=== PATIENT | female | born 1980 | race African-American/Black ===

== ENCOUNTER 2025-03-29 13:08 | Outpatient (OUT) | payer MEDICAID, SELFPAY ==
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
--- OUTSIDE RECORDS SUMMARY | 2025-03-29 13:14 | XMS_ITS | Clinical Summary ---
Author Organization [facility] Address [address] [place] [address] Care Team Providers Care Market Research Specialist Name Role Phone Unavailable Primary Care Provider Unavailabl e Source Comments PLEASE NOTE, if this patient is a minor, it may be UNLAWFUL to discuss sensitive information that is contained in these records (such as FAMILY PLANNING, MENTAL HEALTH or SUBSTANCE ABUSE) with the minor patient's parent or other person without the patient's specific authorization.[facility] Allergies Active Allergy Reactions Criticality Noted Date Comments Bee Pollen Other (See Comments) 02/03/2006 SINUS CONGESTION,WATERY EYES,SNEEZING,ITCHI NG EYES,SCRATCHY THROAT, PUFFY EYES Hydrocodone Itching 05/28/2017 Hydrocodone-Acetaminoph en Itching 12/10/2014 Has taken oxycodone/acetamino phen in past with no rxn Morphine Hives,Itching 12/10/2014 Takes Benadryl with it Nsaids (Non-Steroidal Anti-Inflammatory Drug) Unknown 06/30/2015 Gastric bypass Gastric Bypass Surgery - 2009 Unsure what type of reaction the patient had but she states she had a reaction to it years ago Unsure what type of reaction the patient had but she states she had a reaction to it years ago Medications enoxaparin (LOVENOX) 100 mg/mL syringe Inject 100 mg into the skin. 5 Active folic acid (FOLVITE) 1 mg tablet Take 1 mg by mouth daily. 5 Active gabapentin (NEURONTIN) 300 mg capsule Take 600 mg by mouth 3 (three) times a day. 5 Active hydrOXYzine HCL (ATARAX) 25 mg tablet Take 25 mg by mouth every 6 (six) hours as needed. Active levothyroxine 25 mcg tablet Take 25 mcg by mouth daily. Active lidocaine (LMX) 4 % cream Apply topically 4 (four) times a day. Active melatonin 3 mg tablet Take 6 mg by mouth. Active multivitamin with minerals tab Take 1 Tablet by mouth daily. Active alum-mag hydroxide-simet h (MYLANTA) 200-200-20 mg/5 mL suspension Take 30 mL by mouth. Active polyethylene glycol, PEG, 3350 (GLYCOLAX) 17 gram/dose powder Take 17 g by mouth twice a day. Active potassium chloride 20 mEq ER tablet TAKE 2 TABLETS (40 MEQ) BY MOUTH ONCE DAILY FOR 5 DAYS. DO NOT CRUSH OR CHEW. Active QUEtiapine (SEROQUEL) 25 mg tablet Take 50 mg by mouth. Active thiamine (VITAMIN B-1) 100 mg tablet Take 100 mg by mouth daily. Active Active Problems Problem Noted Date Diagnosed Date Severe alcohol use disorder ([facility]) 02/22 Deep vein thrombosis (DVT) o f left lower extremity ([facility]) 01/23/2025 Severe episode of recurrent major depressive disorder ([facility]) 01/22/2025 Generalized anxiety disorder 01/22/2025 PTSD (post-traumatic stress disorder) 01/22/2025 Liver damage 12/02/2024 Neuropathy 03/14/2024 RLS (restless legs syndrome) 03/14/2024 Meralgia paresthetica of both lower extremities 02/17/2024 Inflammatory liver disease 01/14/2024 Hyperlipidemia 12/16/2023 Morbid obesity ([facility]) 12/16/2023 Primary hypertension 12/16/2023 Metabolic syndrome 12/16/2023 Myopia of both eyes with regular astigmatism Hx of bariatric surgery 12/19/2018 Chronic deep vein thrombosis (DVT) of iliac vein of left lower extremity ([facility]) 06/05/2017 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 Anemia 05/28/2017 Hypoglycemia 05/28/2017 Hypothyroidism 03/12/2017 Overview (01/29/2025): Last Assessment & Plan: PLAN: -continue home synthroid Major depression 05/03/2012 Overview (01/29/2025): Last Assessment & Plan: Assessment: Depression PLAN: Hx of depression, not currently taking antidepressant or followed by psych No suicidal ideation Recommend follow up with PCP Attention deficit hyperactivity disorder (ADHD) 05/03/2012 Overview (01/29/2025): Last Assessment & Plan: PLAN: -continue home adderall Encounters Date Type Department Care Team Description 03/21/2025 1:00 PM EDT BH/MH Visits [address] [address] Brunilda Lozano LPCC 03/21/2025 BH/MH Visits [address] [address] Brunilda Lozano [facility]CC 02/28/2025 10:00 AM EDT BH/MH Visits [facility] Case Management [address] [place] [phone] Tyree Tinsley QM-B 02/21/2025 9:30 AM EDT BH/MH Visits [facility] Management [address] [place] [phone] Tyree Tinsley [facility] 01/22/2025 11:30 AM EDT BH/MH Visits [address] [address] Radha Renteria LPC from Last 3 Months Immunizations Immunization Administration Dates Next Due DTP 11/15/1981, 1,01/19/1980,06/21 Flu, Preservative Free 09/18/2021,2020,05/17/2019,04/30 Hep B, Adult/Adol (RIJTODH-N-UVLYI/RECOMBIVAX-ADULT) 11/03/2022,02/08/1996,12/24/1995 INFLUENZA, SEASONAL, INJECTABLE 05/21/2014 INFLUENZA, UNSPECIFIED 06/16/2016,05/24/2015,08/2012 MMR (MMR II/Priorix) 09/03/1980 OPV, Trivalent 11/15/1981, 1,01/19/1980,06/21 PNEUMOCOCCAL POLYSACCHARIDE PPV23 (Pneumovax 23) 09/30/2016 PPD 03/17/2010, 8,02/10/2006,02/03,10/15/1999,10/10/1999 TDAP 11/03/2022,11/30/2021,05/20/2006 Td (adult) unspecified 12/24/1995 Tetanus Toxoid, Absorbed 07/10/2014 Varicella (Varivax), Live Vaccine 02/08/1996,10/1995 Social History Tobacco Use Types Packs/Day Years Used Date Smoking Tobacco: Never Assessed Comments Unknown Sex and Gender Information Value Date Recorded Sex Assigned at Not on file Legal Sex Female 7:10 AM PDT Gender Identity Female 03/21/2025 9:23 AM PDT Sexual Orientation Not on file Plan of Treatment Upcoming Encounters Date Type Department Care Team (Late st Contact Info) Description 04/04/2025 11:00 AM EDT / Visits [facility] [address] [place] [address] Emma Waddell [facility] [address] [place] [address] Health Maintenance Due Date Last Done Comments HPV Screening 1979 Lipid Screening 1979 Pap + HPV 1979 Tobacco Screening 1979 Relationship Safety Screening/Counseling 1994 Cervical Cancer Screening 2000 Pap Smear 2000 Breast Cancer Screening (Mammogram) 2019 CT Colonography 2024 Colonoscopy 2024 Colorectal Cancer Screening 2024 FIT/gFOBT 2024 Fecal DNA 2024 Flexible Sigmoidoscopy 2024 Cck-IIRHB-43 ( season) 2024 Imm-Influenza (#1) 2025 09/18/2021, 1 , 05/17/2019, Additional history exists Depression Monitoring 04/24/2025 01/22/2025 TSH Monitoring 12/01/2025 12/01/2024, 10/21/2017 Diabetes Screening 01/16/2026 01/16/2025, 0 01/16/2025, 01/12/2025, Additional history exists Anxiety Screening 01/22/2026 01/22/2025 Imm-DTaP/Tdap/Td (9 - Td or Tdap) 11/03/2032 11/03/2022, 11/30/2021, 05/20/2006, Additional history exists Imm-Hepatitis B Completed 11/03/2022, 01/21, 12/24/1995 HIV Screening Completed 12/02/2024 Hepatitis C Screening Completed 12/02/2024 Alcohol and Drug Screen Completed 01/22/2025 Cervical Ablation/Cold-Knife Conization Discontinued Cervical Cryotherapy Discontinued Colposcopy Discontinued Endometrial Biopsy Discontinued Excision/Leep Discontinued HPV Genotyping Discontinued Vaginal Pap Discontinued Vulvoscopy Discontinued [facility] Member Subscriber Plan / Payer (Ef fective 2025-Present) Name:Hendrickson Nilton Relation to Subscriber:Self Name:Emeka Nilton Payer ID:[id number] Group ID:Not on file Type:Medicaid Address: [address] [place] [address] [facility]
--- OUTSIDE RECORDS SUMMARY | 2025-03-29 13:14 | XMS_ITS | Encounter Summary ---
Author Organization [facility] Address [address] [place] [address] Phone Care Team Providers Care Municipal Maintenance Worker Name Role Phone Generic Provider, No Assigned Pcp Primary Car e Provider Unavailable Michael Phillips MD, Kylee Unavailable Unavailable Alicia Valenzuela MD Unavailable [phone] Emelina Hendrickson MD, MS Unavailable [phone] Encounter Details Date Type Department Care Team (Late st Contact Info) Description 02/02/2025 Scanned Document [facility] [address] [address] Jessica Serrato MA Social History Tobacco Use Types Packs/Day Years Used Date Smoking Tobacco: Never Smokeless Tobacco: Never Alcohol Use Standard Drinks/Week Comments Not Currently 0 (1 standard drink = 0.6 oz pur e alcohol) B1300 Health Literacy Answer Date Recor ded How often do you need to hav e someone help you when you read instructions, pamphlets, or other written material from your doctor or pharmacy? Never 01/01/2025 [facility] Utilities Answer Date Recorded In the past 12 months has e [employer], gas, oil, or water [employer] threatened to shut off services in your home? No 01/04/2025 Humiliation, Afraid, Rape, and Kick questionnair e Answer Date Recorded Within the last year, have y ou been afraid of your partner or ex-partner? No 01/04/2025 Within the last year, have y ou been humiliated or emotionally abused in other ways by your partner or ex-partner? No Within the last year, have y ou been kicked, hit, slapped, or otherwise physically hurt by your partner or ex-partner? No 01/04/2025 Within the last year, have y ou been raped or forced to have any kind of sexual activity by your partner or ex-partner? No 01/04/2025 Social Connection and Isolation Panel Answer Date Recorded In a typical week, how many times do you talk on the phone with family, friends, or neighbors? More than three times a week 01/01/2025 How often do you get togethe r with friends or relatives? More than three times a week 01/01/2025 How often do you attend chur or jain services? More than 4 times per year 01/01/2025 Active Member of Clubs or Organizations Not on f ile 01/01/2025 How often do you attend meet ings of the clubs or organizations you belong to? More than 4 times per year 01/01/2025 Are you , , di vorced, , never , or living with a partner? 01/01/2025 AUDIT-C Answer Date Recorded Q1: How often do you have a drink containing alcohol? 4 or more times a week 01/03/2025 Q2: How many drinks containi ng alcohol do you have on a typical day when you are drinking? 5 or 6 Q3: How often do you have si x or more drinks on one occasion? Weekly 01/03/2025 Overall Financial Resource Strain (CARDIA) Answe r Date Recorded How hard is it for you to pa y for the very basics like food, housing, medical care, and heating? Somewhat hard 01/04/2025 PHQ-2 Answer Date Recorded Patient Health Questionnaire-2 Score 0 01/03/2025 [facility] [place] of Occupat ional Health - Occupational Stress Questionnaire Answer Date Recorded Do you feel stress - tense, restless, nervous, or anxious, or unable to sleep at night because your mind is troubled all the time - these days? To some extent 01/01/2025 Exercise Vital Sign Answer Date Recorde d On average, how many days pe r week do you engage in moderate to strenuous exercise (like a brisk walk)? 0 days 01/01/2025 On average, how many minutes do you engage in exercise at this level? 0 min 01/01/2025 Hunger Vital Sign Answer Date Recorded Within the past 12 months, y ou worried that your food would run out before you got the money to buy more. Sometimes true Within the past 12 months, t he food you bought just didn't last and you didn't have money to get more. Sometimes true PRAPARE - Transportation Answer Date Re corded In the past 12 months, has l ack of transportation kept you from medical appointments or from getting medications? No 12/21 In the past 12 months, has l ack of transportation kept you from meetings, work, or from getting things needed for daily living? No 01/04/2025 Housing Stability Vital Sign Answer Vladimir e Recorded In the last 12 months, was t here a time when you were not able to pay the mortgage or rent on time? No 02/13/2024 In the last 12 months, how many places have you lived? 1 02/13/2024 In the last 12 months, was t here a time when you did not have a steady place to sleep or slept in a usp (including now)? No 02/13/2024 Housing Stability Vital Sign Answer Vladimir e Recorded In the last 12 months, was t here a time when you were not able to pay the mortgage or rent on time? No 01/04/2025 In the past 12 months, how m any times have you moved where you were living? 0 01/04/2025 At any time in the past 12 m [facility], were you homeless or living in a usp (including now)? No 01/04/2025 Comments Unknown Sex and Gender Information Value Date Recorded Sex Assigned at Not on file Legal Sex Female 8:38 AM EST Gender Identity Not on file Sexual Orientation Not on file COVID-19 Exposure Response Date Recorded In the last 10 days, have yo u been in contact with someone who was confirmed or suspected to have Coronavirus/COVID-19? No / Unsure 01/12/2025 10:28 PM EDT documented as of this encounter Functional Status * Are you deaf or do you have serious difficulty hearing? Answer Date of Assessment Author No 01/04/2025 3:53 PM EDT Timmy Monteiro * Are you blind or do you have serious difficulty seeing, even when wearing glasses? Answer Date of Assessment Author No 01/04/2025 3:53 PM EDT Timmy Monteiro * Do you have serious difficulty walking or climbing stairs? Answer Date of Assessment Author No 01/04/2025 3:53 PM EDT Timmy Monteiro * Do you have serious difficulty dressing or bathing? Answer Date of Assessment Author No 01/04/2025 3:53 PM EDT Timmy Monteiro * Because of a physical, mental, or emotional condition, do you have serious difficulty doing errandsalone such as visiting the doctor? Answer Date of Assessment Author No 01/04/2025 3:53 PM EDT Timmy Monteiro documented as of this encounter Mental Status * Because of a physical, mental, or emotional condition, do you have serious difficulty concentrating, remembering, or making decisions? (5 years old or older) Answer Entry Date Author No 01/04/2025 3:53 PM EDT Timmy Monteiro documented in this encounter Plan of Treatment Upcoming Encounters Date Type Department Care Team (Late st Contact Info) Description 05/08/2025 9:00 AM EDT Telemedicine [facility] [address] [facility] [address] [place] [phone] Rimma Lozada, LETTER SORTING MACHINE OPERATORFITCHBURG [facility] [address] [facility] [place] [address] documented as of this encounter Visit Diagnoses Not on filedocumented in this encounter Additional Health Concerns Assessment Noted Time A fall risk assessment has been complete d for the patient 01/13/2024 2:45 PM EDT documented as of this encounter Care Teams Municipal Maintenance Worker Relationship Specialty Start Date End Date Generic Provider, No [place] [address] PCP - General Card Reader 03/30/24 [place] [address] Consulting Physician Hematology and Oncology 05/09/2402/21/25 [place] [address] [place] [address] Consulting Physician Hematology and Oncology 12/12/24 [place] [address] [address] [facility] [place] [address] Consulting Physician Vascular Medicine 01/23/25 documented as of this encounter
--- OUTSIDE RECORDS SUMMARY | 2025-03-29 13:14 | XMS_ITS | Encounter Summary ---
Author Organization [facility] Address [address] [place] [address] Phone Care Team Providers Care Storage Architect Name Role Phone Generic Provider, No Assigned Pcp MD Primary Car e Provider Unavailable Michael Phillips MD, Kylee Unavailable Unavailable Aranza Hendrickson [facility] Unavailable Unavailab Rimma Mccormick MOTOCROSS RACER-REPAIR CLERK Unavailable [phone] Alicia Valenzuela MD Unavailable [phone] Rachel Fermin [facility] Unavailable Un available Emelina Hendrickson MD, MS Unavailable [phone] Encounter Details Date Type Department Care Team (Late st Contact Info) Description 03/10/2024 Orders Only [facility] [address] [place] [phone] Rimma Lozada, MOTOCROSS RACER-REPAIR CLERK [address] Department [place] [address] Social History Tobacco Use Types Packs/Day Years [...] material from your doctor or pharmacy? Never 03/04/2024 [facility] Utilities Answer Date Recorded In the past 12 months has th e electric, gas, oil, or water company threatened to shut off services in your home? No 03/04/2024 Humiliation, Afraid, Rape, and Kick questionnair e Answer Date Recorded Within the last year, have y ou been afraid of your partner or ex-partner? No 03/04/2024 Within the last year, have y ou been humiliated or emotionally abused in other ways by your partner or ex-partner? No Within the last year, have y ou been kicked, hit, slapped, or otherwise physically hurt by your partner or ex-partner? No 03/04/2024 Within the last year, have y ou been raped or forced to have any kind of sexual activity by your partner or ex-partner? No 03/04/2024 Social Connection and Isolation Panel Answer Date Recorded In a typical week, how many times do you talk on the phone with family, friends, or neighbors? Never 03/04/2024 How often do you get together with friends or re latives? Never 03/04/2024 How often do you attend muslim or denominational serv ices? Never 03/04/2024 Do you belong to any clubs o r organizations such as muslim groups, unions, fraternal or athletic groups, or school groups? No 03/04/2024 How often do you attend meet ings of the clubs or organizations you belong to? Never 03/04/2024 Are you , , di vorced, , never , or living with a partner? 03/04/2024 AUDIT-C Answer Date Recorded Q1: How often do you have a drink containing alc ohol? 2-4 times a month 03/04/2024 Q2: How many drinks containi ng alcohol do you have on a typical day when you are drinking? 1 or 2 03/04/2024 Q3: How often do you have si x or more drinks on one occasion? Never 03/04/2024 Overall Financial Resource Strain (CARDIA) Answe r Date Recorded How hard is it for you to pa y for the very basics like food, housing, medical care, and heating? Not very hard 03/04/2024 PHQ-2 Answer Date Recorded Patient Health Questionnaire-2 Score 0 03/04/2024 [facility] - Occupational Stress Questionnaire Answer Date Recorded Do you feel stress - tense, restless, nervous, or anxious, or unable to sleep at night because your mind is troubled all the time - these days? Not at all 03/04/2024 Exercise Vital Sign Answer Date Recorde d On average, how many days pe r week do you engage in moderate to strenuous exercise (like a brisk walk)? 0 days 03/04/2024 On average, how many minutes do you engage in exercise at this level? 0 min 03/04/2024 Hunger Vital Sign Answer Date Recorded Within the past 12 months, y ou worried that your food would run out before you got the money to buy more. Never true 03/04/20 24 Within the past 12 months, t he food you bought just didn't last and you didn't have money to get more. Never true 03/04/2024 PRAPARE - Transportation Answer Date Re corded In the past 12 months, has l ack of transportation kept you from medical appointments or from getting medications? No 02/20 In the past 12 months, has l ack of transportation kept you from meetings, work, or from getting things needed for daily living? No 03/04/2024 Housing Stability Vital Sign Answer Vladimir e [...] place to sleep or slept in a long-term (including now)? No 02/13/2024 Housing Stability Vital Sign Answer Vladimir e Recorded In the last 12 months, was t here a time when you were not able to pay the mortgage or rent on time? No 03/04/2024 In the past 12 months, how m any times have you moved where you were living? 22 03/04/2024 At any time in the past 12 m [facility], were you homeless or living in a long-term (including now)? No 03/04/2024 Comments Unknown Sex and Gender Information Value Date Recorded Sex Assigned at Not on file Legal Sex Female 8:38 AM EST Gender Identity Not on file Sexual Orientation Not on file COVID-19 Exposure Response Date Recorded In the last 10 days, have yo u been in contact with someone who was confirmed or suspected to have Coronavirus/COVID-19? No / Unsure 03/07/2024 10:33 AM EDT documented as of this encounter Plan of Treatment Upcoming Encounters Date Type Department Care Team (Late st Contact Info) Description 05/08/2025 9:00 AM EDT Telemedicine [facility] [address] [facility] [address] [place] [address] Rimma Lozada, MOTOCROSS RACER-REPAIR CLERK [address] [facility] [place] [address] documented as of this encounter Visit Diagnoses Not on filedocumented in this encounter Additional Health Concerns Assessment Noted Time A fall risk assessment has been complete d for the patient 01/13/2024 2:45 PM EDT documented as of this encounter Care Teams Storage Architect Relationship Specialty Start Date End Date Generic Provider, No [place] [address] PCP - General Contract Administration Specialist 03/30/24 Rimma Lozada, MOTOCROSS RACER-REPAIR CLERK [address] [facility] [place] [address] PCP - Reinaldo FUNES PCP 05/23/24 09/22/24 [place] [address] Consulting Physician Hematology and Oncology 05/09/2402/21/25 Aranza Hendrickson [facility] Sleeve Sewer Machine Farmworker 06/02/24 06/09/24 [place] [address] [place] [address] Consulting Physician Hematology and Oncology 12/12/24 Rachel Fermin [facility] Studio HandFleet Dispatch Manager 01/01/25 01/01/25 [place] [address] [address] [facility] [place] [phone] Consulting Physician Vascular Medicine 01/23/25 documented as of this encounter
--- OUTSIDE RECORDS SUMMARY | 2025-03-29 13:14 | XMS_ITS | Encounter Summary ---
Author Organization [facility] Address [address] [place] [address] Phone Care Team Providers Care Director Of Corporate Responsibility Name Role Phone Generic Provider, No Assigned Pcp MD Primary Car e Provider Unavailable Alicia Valenzuela MD Unavailable [phone] Emelina Hendrickson MD, MS Unavailable [phone] Reason for Visit * Reason Onset Date Comments Anticoagulation 03/16/[address] Agata evans missed appt. 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 Encounter Details Date Type Department Care Team (Late st Contact Info) Description 03/16/[address] [facility] [place] [address] [place] [id number] Christine Dyer RN Anticoagulation (Notified Dr. Hendrickson missed appt. Today, not seen since last week on 03/09 for NPV also noted per nurse note pt reported she is not taking lovenox d/t neuropathy in her hands and is unable to perform injections.) Social History Tobacco Use Types Packs/Day Years [...] from your doctor or pharmacy? Never 01/01/2025 [facility] Utilities Answer Date Recorded In the past 12 months has th e [employer], gas, oil, or water company threatened to [...] week 01/01/2025 How often do you attend [facility]? More than 4 times per year [...] Recorded Patient Health Questionnaire-2 Score 0 01/03/2025 [facility] Occupat ional [facility] - Occupational Stress Questionnaire Answer Date Recorded [...] any time in the past 12 m [facility], were you homeless or living in a long-term (including now)? No 01/04/2025 Comments Unknown Sex and Gender Information Value Date Recorded Sex Assigned at Not on file Legal Sex Female 8:38 AM EST Gender Identity Not on file Sexual Orientation Not on file documented as of this encounter Functional Status * Are you deaf or do you have serious difficulty hearing? Answer Date of Assessment Author No 01/04/2025 3:53 PM EDT Timmy Monteiro B * Are you blind or do you have serious difficulty seeing, even when wearing glasses? Answer Date of Assessment Author No 01/04/2025 3:53 PM EDT Timmy Monteirostkevin B * Do you have serious difficulty walking or climbing stairs? Answer Date of Assessment Author No 01/04/2025 3:53 PM EDT Timmy Monteiro B * Do you have serious difficulty dressing or bathing? Answer Date of Assessment Author No 01/04/2025 3:53 PM EDT Timmy Monteirostal B * Because of a physical, mental, or emotional condition, do you have serious difficulty doing errandsalone such as visiting the doctor? Answer Date of Assessment Author No 01/04/2025 3:53 PM EDT Timmy Monteirostkevin B documented as of this encounter Mental Status * Because of a physical, mental, or emotional condition, do you have serious difficulty concentrating, remembering, or making decisions? (5 years old or older) Answer Entry Date Author No 01/04/2025 3:53 PM EDT Timmy Monteirostkevin B documented in this encounter Miscellaneous Notes * Telephone Encounter - Christine Gar RN - 03/29/2025 9:28 AM EDT Called patient , left message to schedule an appointment, contact voicemail number [phone] option #2 left with message Step 1 electronically sent to patient and Dr Hendrickson today , if not seen in clinic by 04/12 send step 2 final warning Last seen in clinic NPV on 03/09 ,missed 03/14 and 03/16 * Telephone Encounter - Christine Gar RN - 03/16/2025 1:35 PM EDT Missed appointment today , called patient, left message to reschedule , contact voicemail number left in with message documented in this encounter Plan of Treatment Upcoming Encounters Date Type Department Care Team (Late st Contact Info) Description 05/08/2025 9:00 AM EDT Telemedicine [facility] [address] [facility] 13th [place] [phone] Rimma Lozada, CLINICAL SERVICES CONSULTANT-RESIDENTIAL COUNSELOR [id number] [facility] Department [place] [address] documented as of this encounter Visit Diagnoses Not on filedocumented in this encounter Additional Health Concerns Assessment Noted Time A fall risk assessment has been complete d for the patient 01/13/2024 2:45 PM EDT documented as of this encounter Care Teams Director Of Corporate Responsibility Relationship Specialty Start Date End Date Generic Provider, No [place]igned [place] [address] PCP - General Air Tube Releaser 03/30/24 [place] [address] [place] [address] Consulting Physician Hematology and Oncology 12/12/24 [place] [address] [address] [facility] [place], [place] [id number] Consulting Physician Vascular Medicine 01/23/25 documented as of this encounter
--- OUTSIDE RECORDS SUMMARY | 2025-03-29 13:15 | XMS_ITS | Encounter Summary ---
Author Organization [facility] Address [address] [place] [address] Care Team Providers Care Marine Diesel Technician Name Role Phone Unavailable Primary Care Provider Unavailabl e Reason for Visit * Reason Comments Care Coordination DA Encounter Details Date Type Department Care Team (Late st Contact Info) Description 03/21/2025 / Visits [address] [phone] [facility] [address] [place] [phone] Social History Tobacco Use Types Packs/Day Years Used Date Smoking Tobacco: Never Assessed Comments Unknown Sex and Gender Information Value Date Recorded Sex Assigned at Not on file Legal Sex Female 7:10 AM PDT Gender Identity Female 03/21/2025 9:23 AM PDT Sexual Orientation Not on file documented as of this encounter Progress Notes * ALVARO Burden - 03/21/2025 1:56 PM EDT Reason for visit: Assessment Care Coordination Video conference visit ([email or web address]). Patient identity confirmed via name and date of . Potential risks and benefits discussed with patient/guardian, who verbalized consent for telehealth encounter.Patient location: clinic/office. Problem: Patient completed Diagnostic Assessment and is in need of support to coordinate services. Intervention: Referral and linkage to healthcare or other services to support the least restrictivetreatment setting, Identification of needs, strategies and treatment options, Discussed barriers totreatment/social determinants of health, Addressed payor source/insurance issues related to treatment recommendations, Obtained consent to care, Discussed custody/guardianship, and Provided information regarding pharmacy services including free delivery, bubble wrap, low cost medications options, and availabilty of medication reconciliation appointments. Comment: Response: Increased skills or knowledge demonstrated by patient, Improved coordination of care, andPatient agreed to all recommendations and referrals Comment: Plan Complete all scheduled follow up appointments If you are in crisis, contact local mobile crisis/emergency services. If you are on a waitlist for counseling services, you may obtain walk in counseling by presenting to any [facility] location Mon-Fri 8am-5pm. For additional questions, please contact [facility] at [phone]. documented in this encounter Plan of Treatment Upcoming Encounters Date Type Department Care Team (Late st Contact Info) Description 04/04/2025 11:00 AM EDT / Visits [facility] [address] [place] [phone] Emma Waddell [facility] [address] [place] [address] documented as of this encounter Visit Diagnoses Diagnosis Severe alcohol use disorder (CMS & HHS-HCC)- Primary Other and unspecified alcohol dependence, unspecified drinking behavior documented in this encounter Additional Health Concerns Assessment Noted Time PHQ-9 Depression Total Score: 22 025 10:52 AM PDT documented as of this encounter
--- OUTSIDE RECORDS SUMMARY | 2025-03-29 13:15 | XMS_ITS | Clinical Summary ---
Author Organization [facility] Address [address] [place] [address] Phone Care Team Providers Care Sql Ssrs Ssis Developer Name Role Phone Generic Provider, No Assigned Pcp MD Primary Car e Provider Unavailable Alicia Valenzuela MD Unavailable [phone] Emelina Hendrickson MD, MS Unavailable [phone] Allergies Active Allergy Reactions Criticality Noted Date Comments Acetaminophen-Codeine Nausea/vomiting 5 Really violent vomiting-- also adverse reaction to #4 Takes Benadryl with it Hydrocodone-Acetaminoph en Itching 12/10/2014 Has taken oxycodone/acetaminophen in past with no rxn Morphine Hives 12/10/2014 Takes Benadryl with it Nsaids (Non-Steroidal Anti-Inflammatory Drug) Unknown 06/30/2015 Gastric bypass Gastric Bypass Surgery - 2009 Unsure what type of reaction the patient had but she states she had a reaction to it years ago Unsure what type of reaction the patient had but she states she had a reaction to it years ago Pollen Extracts Unknown 02/03/2006 SINUS CONGESTION,WATERY EYES,SNEEZING,ITCHING EYES,SCRATCHY THROAT, PUFFY EYES Medications polyethylene glycol (Glycolax, Miralax) 17 gram/dose powderIndications: Alcohol-induced acute pancreatitis without infection or necrosis (HHS-HCC) Mix 17 g of powder and drink 2 times a day. 510 g 5 8:56 AM EDT 12/08/19 25 Active levothyroxine (Synthroid, Levoxyl) 25 mcg tabletIndications: Acquired hypothyroidism Take 1 tablet (25 mcg) by mouth early in the morning.. Take on an empty stomach at the same time each day, either 30 to 60 minutes prior to breakfast 30 tablet 1 5 10:11 AM EDT 12/10/19 25 Active gabapentin (Neurontin) 300 mg capsuleIndications :Pain and swelling of upper extremity, unspecified laterality Take 2 capsules (600 mg) by mouth 3 times a day. 90 capsule 3 01/07/20 25 Active lidocaine (LMX) 4 % creamIndications:P ain and swelling of upper extremity, unspecified laterality Apply topically 4 times a day. To bilateral hands and wrists. 120 g 3 5 11:39 AM EDT 01/07/20 25 Active hydrOXYzine HCL (Atarax) 25 mg tabletIndications: Anxiety Take 1 tablet (25 mg) by mouth every 6 hours if needed for anxiety. 120 tablet 2 01/07/20 25 Active warfarin (Coumadin) 5 mg tabletIndications: Deep vein thrombosis (DVT) of left lower extremity, unspecified chronicity, unspecified vein Take 1 tablet (5 mg) by mouth once daily in the evening. Take as directed per After Visit Summary. 30 tablet 2 02/23/20 25 026 Active cyanocobalamin (Vitamin B-12) 100 mcg tablet Take 1 tablet (100 mcg) by mouth once daily. Active ferrous sulfate 325 mg (65 mg elemental) tablet Take 1 tablet by mouth once daily with breakfast. 06/29/20 24 Active potassium chloride CR 20 mEq ER tablet Take 1 tablet (20 mEq) by mouth twice a day. 12/21/19 25 Active zinc sulfate (Zincate) 220 mg (50 mg elemental) capsule Take 1 capsule by mouth once daily. 02/13/20 25 Active amphetamine-dextro amphetamine (Adderall) 20 mg tabletIndications: Attention deficit hyperactivity disorder (ADHD), predominantly inattentive type Take 1 tablet (20 mg) by mouth 2 times a day. 60 tablet 03/07/20 25 025 Active amphetamine-dextro amphetamine (Adderall) 20 mg tabletIndications: Attention deficit hyperactivity disorder (ADHD), predominantly inattentive type Take 1 tablet (20 mg) by mouth 2 times a day. Do not fill before April 06, 2025. 60 tablet 04/06/20 25 025 Active amphetamine-dextro amphetamine (Adderall) 20 mg tabletIndications: Attention deficit hyperactivity disorder (ADHD), predominantly inattentive type Take 1 tablet (20 mg) by mouth 2 times a day. Do not fill before May 06, 2025. 60 tablet 05/06/20 25 025 Active hydrOXYzine pamoate (VistariL) 50 mg capsuleIndications :Anxiety Take 1 capsule (50 mg) by mouth 3 times a day as needed for anxiety (sleep). 240 capsule 03/07/20 25 025 Active multivitamin with minerals tabletIndications: Neuropathy Take 1 tablet by mouth once daily. 30 tablet 2 5 8:56 AM EDT 12/09/19 025 folic acid (Folvite) 1 mg tabletIndications: Neuropathy Take 1 tablet (1 mg) by mouth once daily. 30 tablet 2 5 8:56 AM EDT 12/09/19 025 thiamine (Vitamin B-1) 100 mg tabletIndications: Neuropathy Take 1 tablet (100 mg) by mouth once daily. 30 tablet 2 5 8:56 AM EDT 12/09/19 025 melatonin 3 mg tabletIndications: Alcohol withdrawal syndrome without complication (Multi) Take 2 tablets (6 mg) by mouth once daily at bedtime. 60 tablet 2 5 8:56 AM EDT 12/08/19 025 enoxaparin (Lovenox) 100 mg/mL syringeIndications :Deep vein thrombosis (DVT) of proximal vein of left lower extremity, unspecified chronicity Inject 1 mL (100 mg) under the skin every 12 hours. 60 each 2 12/09/19 025 QUEtiapine (SEROquel) 25 mg tabletIndications: Anxiety Take 2 tablets (50 mg) by mouth once daily at bedtime. 60 tablet 5 11:58 AM EDT 12/10/19 025 Discontinu ed(Side effects) fluconazole (Diflucan) 100 mg tabletIndications: Skin yeast infection Take 1 tablet (100 mg) by mouth once daily for 14 days. 14 tablet 03/01/20 25 025 nystatin (Mycostatin) creamIndications:S kin yeast infection Apply topically 2 times a day for 7 days. 30 g 2 03/01/20 25 025 sulfamethoxazole-t rimethoprim (Bactrim DS) 800-160 mg tabletIndications: Acute cystitis without hematuria Take 1 tablet by mouth 2 times a day for 5 days. 10 tablet 03/01/20 25 025 pyridoxine (Vitamin B-6) 50 mg tablet Take 1 tablet (50 mg) by mouth once daily. 02/13/20 25 025 Active Problems Problem Noted Date Diagnosed Date Skin yeast infection 03/01/2025 Assessment & Plan (03/01/2025 3:27 PM EDT): Nystatin powder is not helping We will do nystatin cream along with fluconazole 100 mg once daily for 14 days. Discussed to keep this skin area dry and ways to help prevent moisture in those areas. If no improvement in the next 3 to 5 days please follow-up with your PCP. Acute cystitis without hematuria 03/01/2025 Assessment & Plan (03/01/2025 3:28 PM EDT): Reviewed her complicated hospitalization. She is having symptoms similar to her UTI while she was hospitalized. -Bactrim twice daily x 5 days - increase fluids -red flags discussed including fever, chills, flank pain or worsening symptoms - if symptoms do not improve in 3-5 days follow up with PCP tank terminal gauger (current) use of anticoagulants 2024 Deep vein thrombosis (DVT) o f left lower extremity, unspecified chronicity, unspecified vein 01/23/2025 DVT of deep femoral vein, left 01/03/2025 Alcohol withdrawal syndrome, with delirium (Mult i) 12/25/2024 Liver damage 12/02/2024 Conversion disorder 06/03/2024 Deep vein thrombosis (DVT) o f proximal vein of left lower extremity, unspecified chronicity 05/31/2024 Neuropathy 03/14/2024 RLS (restless legs syndrome) 03/14/2024 Acute deep vein thrombosis ( DVT) of femoral vein of left lower extremity 03/04/2024 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), with anesthesia or sensory loss 02/17/2024 Meralgia paresthetica of both lower extremities 02/17/2024 Hepatitis 01/14/2024 DVT femoral (deep venous thr ombosis) with thrombophlebitis, unspecified laterality (Multi) 12/16/2023 Primary hypertension 12/16/2023 Morbid obesity (Multi) 12/16/2023 Metabolic syndrome 12/16/2023 Thyroid nodule 12/16/2023 Hyperlipidemia 12/16/2023 Postthrombotic syndrome of left lower extremity 11/10/2023 Myopia of both eyes with regular astigmatism Hx of bariatric surgery 12/19/2018 Hypothyroidism 03/12/2017 Overview (12/16/2023): Last Assessment & Plan: PLAN: -continue home synthroid Iron deficiency anemia 10/18/2015 Overview (12/16/2023): Last Assessment & Plan: Assessment: Iron deficiency anemia Most recent hemoglobin 8.6 Baseline appears to be around 9 Chronic condition PLAN: Continue oral iron Follow up with PCP Major depression 05/03/2012 Overview (12/16/2023): Last Assessment & Plan: Assessment: Depression PLAN: Hx of depression, not currently taking antidepressant or followed by psych No suicidal ideation Recommend follow up with PCP Attention deficit hyperactivity disorder (ADHD) 05/03/2012 Overview (12/16/2023): Last Assessment & Plan: PLAN: -continue home adderall Resolved Problems Problem Noted Date Diagnosed Date Resolved Date Concern about disease without diagnosis 06/03/2024 03/01/2025 Encounters Date Type Department Care Team Description 03/16/2025 Telephone [facility] [address] [place] [address] x2 Christine Gar RN Anticoagulation (Notified Dr. Hendrickson missed appt. Today, not seen since last week on 03/09 for NPV also noted per nurse note pt reported she is not taking lovenox d/t neuropathy in her hands and is unable to perform injections.) 03/14/2025 Anticoagulation - Warfarin Visit [facility] [address] [facility] [address] [place] [address] x2 Jesi Redman, REX Deep vein thrombosis (DVT) of left lower extremity, unspecified chronicity, unspecified vein; custodial (current) use of anticoagulants 03/09/2025 9:00 AM EDT Anticoagulation - Warfarin Visit [facility] [address] [facility] [address] [place] [address] x2 Epi Gaffney RN Deep vein thrombosis (DVT) of left lower extremity, unspecified chronicity, unspecified vein; tank terminal gauger (current) use of anticoagulants 03/07/2025 8:30 AM EDT Telemedicine [facility] [address] [place] [phone] Rimma Lozada, SOLE BUFFER-CRAB FISHER Attention deficit hyperactivity disorder (ADHD), predominantly inattentive type; Anxiety 03/02/2025 8:45 AM EDT Office Visit [facility] [address] [place] [address] Julio Kevin MD Urinary tract infection without hematuria, site unspecified (Primary Dx); Fatty liver; Midline low back pain without sciatica, unspecified chronicity; Morbid obesity (Multi); Primary hypertension 03/02/2025 Travel 03/01/2025 2:40 PM EDT Telemedicine [facility] [address] [place] [address] Lynette Connor, SOLE BUFFER-CRAB FISHER Skin yeast infection (Primary Dx); Acute cystitis without hematuria 03/01/2025 Telephone [facility] [address] [place] [address] Gabby Kirkland, REX Anticoagulation 02/27/2025 Anticoagulation - Warfarin Visit [facility] [address] [place] [address] x1 Rosa Penaloza RN Deep vein thrombosis (DVT) of left lower extremity, unspecified chronicity, unspecified vein (Primary Dx); custodial (current) use of anticoagulants 02/27/2025 Anticoagulation - Warfarin Visit [facility] [address] [place] [phone] x1 Gladis Wills RN Deep vein thrombosis (DVT) of left lower extremity, unspecified chronicity, unspecified vein (Primary Dx); custodial (current) use of anticoagulants 02/21/2025 Orders Only [facility] [address] [place] [address] Emelina Hendrickson MD, MS Deep vein thrombosis (DVT) of left lower extremity, unspecified chronicity, unspecified vein (Primary Dx) 02/06/2025 Telephone [facility] [address] [facility] [address] [place] [address] Loretta Sawyer, REX Anticoagulation 02/02/2025 Scanned Document [facility] [address] [facility] [address] [place] [address] Jessica Serrato MA 01/24/2025 Telephone [facility] [address] [place] [phone] Madelin Rollins LPN Anticoagulation 01/23/2025 Orders Only [facility] [address] [facility] [address] [place] [address] Emelina Hendrickson MD, MS Deep vein thrombosis (DVT) of left lower extremity, unspecified chronicity, unspecified vein (Primary Dx) 01/12/2025 10:37 PM EDT - 01/13/2025 9:21 AM EDT Emergency [facility] [address] [place] [phone] Rivas Espinoza MD Alcoholic intoxication with complication (Primary Dx); Encounter for psychiatric assessment Discharge Disposition: Home 01/12/2025 Travel 01/09/2025 3:20 PM EDT Office Visit [facility] [address] [place] [address] Alicia Valenzuela MD MGUS (monoclonal gammopathy of unknown significance) (Primary Dx); Alcohol-induced acute pancreatitis without infection or necrosis (HHS-HCC); Deep vein thrombosis (DVT) of left lower extremity, unspecified chronicity, unspecified vein 01/09/2025 Travel 01/02/2025 12:00 PM EDT Clinical Support [facility] [address] [place] [address] 01/02/2025 10:55 AM EDT Clinical Support [facility] [address] [place] [address] 01/02/2025 8:54 AM EDT - 01/06/2025 5:03 PM EDT Hospital Encounter [facility] [address] [address] [place] [address] Zaki Dixon, Jeramy Booker MD Marino, Ryan, MD Nguyen, Dang-Khoa Q, MD Porter, Lauren, DO DVT of deep femoral vein, left (Primary Dx); Swelling of extremity; Pain and swelling of upper extremity, unspecified laterality; Alcohol abuse; Anxiety Discharge Disposition: Home 01/02/2025 Travel 01/01/[address] [facility] [address] [place] [address] Rachel Fermin [facility] 01/01/2025 Patient Outreach [facility] [address] [place] [address] [place] [address] Tracy Mendez, REX 12/28/2024 Orders Only [facility] [address] [place] [address] [place] [address] Ros Rangel RN 12/24/2024 4:17 PM EDT - 12/29/2024 10:22 AM EDT Hospital Encounter [facility] [address] [place] [address] Bret Fry MD Salomone, Mark G, DO Kaur, Rajwinder, MD Sehgal, Ishwinder S, MD Alcohol withdrawal syndrome, with delirium (Multi) (Primary Dx); Dehydration; Primary hypertension; Meralgia paresthetica of both lower extremities; Liver damage Discharge Disposition: Home from Last 3 Months Immunizations Immunization Administration Dates Next Due DTP 11/15/1981, 1,01/19/1980,06/21 Flu vaccine (IIV4), preserva tive free *Check age/dose* 05/17/2019 Hepatitis B vaccine, adult * Check Product/Dose* 02/08/1996,12/24/1995 Influenza, Unspecified 06/16/2016,05/24/2015,08/2012 MMR vaccine, subcutaneous (MMR II) 09/03/1980 OPV 11/15/1981, 1,01/19/1980,06/21 PPD Test 03/17/2010, 8,02/10/2006,02/03,10/15/1999,10/10/1999 Pneumococcal polysaccharide vaccine, 23-valent, age 2 years and older (PNEUMOVAX 23) 09/30/2016 Td (adult), unspecified 12/24/1995 Tdap vaccine, age 7 year and older (BOOSTRIX, ADACEL) 05/20/2006 Varicella vaccine, subcutane ous (VARIVAX) 02/08/1996,12/24/1995 Family History Medical History Relation Name Comments Cancer Maternal Grandmother Teresa Bella Cancer Mother's Sister Ksenia Hendrickson Relation Name Status Comments Maternal Grandmother Teresa Bella Alive Mother's Sister Ksenia Hendrickson Alive Social History Tobacco Use Types Packs/Day Years Used Date Smoking Tobacco: Never Smokeless Tobacco: Never Tobacco Cessation:Counseling Given: Not Answered Alcohol Use Standard Drinks/Week Comments Not Currently 0 (1 standard drink = 0.6 oz pur e alcohol) B1300 Health Literacy Answer Date Recor ded How often do you need to hav e someone help you when you read instructions, pamphlets, or other written material from your doctor or pharmacy? Never 01/01/2025 [facility] Utilities Answer Date Recorded In the past [...] week 01/01/2025 How often do you attend [facility] or [facility]ab[facility]ist services? More than 4 times per year [...] Recorded Patient Health Questionnaire-2 Score 0 01/03/2025 [facility] - Occupational Stress [...] place to sleep or slept in a longterm (including now)? No 02/13/2024 Housing Stability Vital [...] time in the past 12 m [facility], were you homeless or living in a longterm (including now)? No 01/04/2025 Comments Unknown Sex and Gender Information Value Date Recorded Sex Assigned at Not on file Legal Sex Female 8:38 AM EST Gender Identity Not on file Sexual Orientation Not on file Last Filed Vital Signs Vital Sign Reading Time Taken Comments Blood Pressure 124/74 03/02/2025 9:24 AM EDT Pulse 106 01/13/2025 8:44 AM EDT Temperature 36.4 C (97.6 F) 01/12/2025 10:27 PM EDT Respiratory Rate 18 01/13/2025 8:44 AM EDT Oxygen Saturation 96% 01/13/2025 8:44 AM EDT Inhaled Oxygen Concentration - - Weight 115 kg (254 lb) 03/02/2025 8:49 AM EDT Height 157.5 cm (5' 2 ) 01/02/2025 8:51 AM EDT Body Mass Index 46.46 01/02/2025 8:51 AM EDT Plan of Treatment Upcoming Encounters Date Type Department Care Team (Late st Contact Info) Description 05/08/2025 9:00 AM EDT Telemedicine [facility] [address] [place] [phone] Rimma Lozada, SOLE BUFFER-CRAB FISHER [address] [facility] Department [place] [address] Health Maintenance Due Date Last Done Comments CT Colonography 1979 Colonoscopy 1979 Colorectal Cancer Screening 1979 FIT-DNA (Cologuard) 1979 FIT 1979 Sigmoidoscopy 1979 Hepatitis A Vaccines (1 of 2 - Risk 2-dose series) 1998 Zoster Vaccines (1 of 2) 1998 02/08/1996, 0510/1995 HPV/Cotest 2000 Yearly Adult Physical 05/21/2007 05/20/2006 Pneumococcal Vaccine: Pediatrics and At-Risk Adult Patients (2 of 2 - PCV) 09/30/2017 09/30/2016 Mammogram 2019 COVID-19 Vaccine ( season) 2024 Cervical Cancer Screening 10/10/2024 Pap Smear 10/10/2024 10/10/2021, 09/23, 10/10/2021 Influenza Vaccine (#1) 2025 , 06/22/2021, 05/17/2019, Additional history exists Lipid Panel 11/21/2025 11/21/2020 Diabetes Screening 01/13/2026 01/13/2025, 0 01/03/2025, 01/02/2025, Additional history exists TSH Level 01/17/2026 01/17/2025, 11/21, 05/31/2024, Additional history exists DTaP/Tdap/Td Vaccines (9 - Td or Tdap) 11/03/2032 11/03/2022, 11/30/2021, 05/20/2006, Additional history exists MMR Vaccines Completed 09/03/1980 IPV Vaccines Completed 11/15/1981, 08/23, 01/19/1980, Additional history exists Hepatitis B Vaccines Completed 11/03/2022, 02/08/1996, 12/24/1995 HIV Screening Completed 12/02/2024 Hepatitis C Screening Completed 12/02/2024, 024 HIB Vaccines Aged Out No longer eligi ble based on patient's age to complete this topic HPV Vaccines Aged Out No longer eligi ble based on patient's age to complete this topic Meningococcal Vaccine Aged Out No dale willie eligible based on patient's age to complete this topic Rotavirus Vaccines Aged Out No longer eligible based on patient's age to complete this topic Procedures Procedure Name Priority Date/Time Associated Diagnosis Comments POCT INR Routine 03/09/2025 9:09 AM EDT Deep vein thrombosis (DVT) of left lower extremity, unspecified chronicity, unspecified vein custodial (current) use of anticoagulants URINALYSIS WITH REFLEX MICROSCOPIC STAT 01/13/2025 6:13 AM EDT DRUG SCREEN,URINE STAT 01/13/2025 6:1 3 AM EDT ACUTE TOXICOLOGY PANEL, BLOOD STAT 01/13/2025 12:59 AM EDT HUMAN CHORIONIC GONADOTROPIN, SERUM QUANTITATIVE STAT 01/13/2025 12:59 AM EDT COMPREHENSIVE METABOLIC PANEL STAT 01/13/2025 12:59 AM EDT CBC WITH AUTO DIFFERENTIAL STAT 01/13/2025 12:59 AM EDT [facility] US UPPER PVR Routine 01/04/2025 2:0 1 PM EDT Pain and swelling of upper extremity, unspecified laterality CBC Routine 01/04/2025 11:34 AM EDT XR CERVICAL SPINE COMPLETE 4-5 VIEWS Routine 01/03/2025 11:42 PM EDT XR HAND 3+ VIEWS BILATERAL Routine 01/03/2025 2:54 PM EDT RHEUMATOID FACTOR Add-On 01/03/2025 5:4 6 AM EDT C-REACTIVE PROTEIN Add-On 01/03/2025 5: 46 AM EDT BASIC METABOLIC PANEL Routine 01/03/2025 5:46 AM EDT CBC Routine 01/03/2025 5:46 AM EDT HC CRITICAL CARE, E/M 30-74 MINUTES Routine 01/02/2025 11:54 PM EDT [facility] US UPPER EXTREMITY VENOUS DUPLEX BILATERAL STAT 01/02/2025 11:39 PM EDT [facility] US LOWER EXTREMITY VENOUS DUPLEX BILATERAL STAT 01/02/2025 7:47 PM EDT CBC WITH AUTO DIFFERENTIAL STAT 01/02/2025 4:40 PM EDT CBC STAT 01/02/2025 2:41 PM EDT COAGULATION SCREEN STAT 01/02/2025 1: 12 PM EDT SERIAL TROPONIN, 1 HOUR STAT 01/02/2025 1:12 PM EDT XR CHEST 2 VIEWS STAT 01/02/2025 12:2 9 PM EDT HCG, URINE, QUALITATIVE STAT 01/02/2025 12:11 PM EDT ECG 12-LEAD STAT 01/02/2025 11:56 AM EDT LIGHT BLUE TOP STAT 01/02/2025 11:47 AM EDT EXTRA TUBES STAT 01/02/2025 11:47 AM EDT C-REACTIVE PROTEIN Add-On 01/02/2025 11 :45 AM EDT SERIAL TROPONIN-INITIAL STAT 01/02/2025 11:45 AM EDT B-TYPE NATRIURETIC PEPTIDE STAT 01/02/2025 11:45 AM EDT MAGNESIUM STAT 01/02/2025 11:45 AM EDT COMPREHENSIVE METABOLIC PANEL STAT 01/02/2025 11:45 AM EDT CBC WITH AUTO DIFFERENTIAL STAT 01/02/2025 11:45 AM EDT TROPONIN SERIES- (INITIAL, 1 HR) STAT 01/02/2025 11:45 AM EDT ECG 12-LEAD STAT 01/02/2025 10:51 AM EDT HC TTE F-UP OR LMTD - TTE LIMITED STAT 01/02/2025 10:45 AM EDT Swelling of extremity ECG 12-LEAD Routine 12/29/2024 8:00 AM EDT SST TOP Routine 12/28/2024 5:35 AM EDT EXTRA TUBES Routine 12/28/2024 5:35 AM EDT COMPREHENSIVE METABOLIC PANEL Routine 12/28/2024 5:35 AM EDT CBC Routine 12/28/2024 5:35 AM EDT COMPREHENSIVE METABOLIC PANEL Routine 12/27/2024 5:47 AM EDT CBC Routine 12/27/2024 5:47 AM EDT HIV 1/2 ANTIGEN/ANTIBODY SCREEN WIH REFLEX TO CONFIRMATION Add-On 12/02/2024 4:19 PM EDT HEPATITIS PANEL, ACUTE Add-On 12/02/2024 4:00 AM EDT TSH WITH REFLEX TO FREE T4 IF ABNORMAL STAT 12/02/2024 12:43 AM EDT CONVERTED GRAIN UNLOADER MACHINE CYTOLOGY Routine 10/10/2021 12:00 AM EST LIPID PANEL NON-FASTING Routine 11/21/2020 9:00 AM EDT from Last 3 Months or Most Recently Relevant to Health Maintenance Results * (ABNORMAL) POCT INR manually resulted (03/09/2025 9:09 AM EDT) POC INR 1.30(A) 0.90 - 1.10 POC Prothrombin Time 9.30 - 12.50 Blood Venous blood specimen / Unknown 03/09/2025 9:09 AM EDT Emelina Hendrickson MD, MS POINT OF CARE TEST ENTER/ EDIT ORDERABLES Final Result * (ABNORMAL) Drug Screen, Urine (01/13/2025 6:13 AM ED) [facility] Amphetamine Screen, Urine Presumptive Negative Presumptive Negative LAB CHEMISTRY METHOD 6:43 AM [facility] Comment: CUTOFF LEVEL: 500 NG/ML Cross-reactivity has been reported with high concentrations of the following drugs: buproprion, chloroquine, chlorpromazine, ephedrine, mephentermine, fenfluramine, phentermine, phenylpropanolamine, pseudoephedrine, and propranolol. Barbiturate Screen, Urine Presumptive Positive(A) Presumptive Negative LAB CHEMISTRY METHOD 6:43 AM [facility] Comment:CUTOFF LEVEL: 200 NG /ML Benzodiazepines Screen, Urine Presumptive Negative Presumptive Negative LAB CHEMISTRY METHOD 6:43 AM [facility] Comment:CUTOFF LEVEL: 200 NG /ML Cannabinoid Screen, Urine Presumptive Negative Presumptive Negative LAB CHEMISTRY METHOD 6:43 AM [facility] Comment:CUTOFF LEVEL: 50 NG/ ML Cocaine Metabolite Screen, Urine Presumptive Negative Presumptive Negative LAB CHEMISTRY METHOD 6:43 AM [facility] Comment:CUTOFF LEVEL: 150 NG /ML Fentanyl Screen, Urine Presumptive Negative Presumptive Negative LAB CHEMISTRY METHOD 6:43 AM [facility] Comment:CUTOFF LEVEL: 5 NG/M L Opiate Screen, Urine Presumptive Negative Presumptive Negative LAB CHEMISTRY METHOD 6:43 AM [facility] Comment: CUTOFF LEVEL: 300 NG/ML The opiate screen does not detect fentanyl, meperidine, or tramadol. Oxycodone is not consistently detected (refer to Oxycodone Screen, Urine result). Oxycodone Screen, Urine Presumptive Negative Presumptive Negative LAB CHEMISTRY METHOD 6:43 AM [facility] Comment: CUTOFF LEVEL: 100 NG/ML This test will accurately detect both oxycodone and oxymorphone. PCP Screen, Urine Presumptive Negative Presumptive Negative LAB CHEMISTRY METHOD 6:43 AM [facility] Comment: CUTOFF LEVEL: 25 NG/ML Cross-reactivity has been reported with dextromethorphan. Methadone Screen, Urine Presumptive Negative Presumptive Negative LAB CHEMISTRY METHOD 6:43 AM T [facility] Comment: CUTOFF LEVEL: 150 NG/ML The metabolite B-mcpxg-ozlkloprcgodlh (LAAM) is not detected by this method in concentrations that would be found in the urine of patients on LAAM therapy. Urine Urine specimen / Unknown Non-blood Collection / Unknown 01/13/2025 6:13 AM EDT 01/13/2025 6:20 AM EDT [facility] - 01/13/2025 6:43 AM EDT Drug screen results are presumptive and should not be used to assess compliance with prescribed medication. Contact the performing [facility] laboratory to add-on definitive confirmatory testing if clinically indicated. Toxicology screening results are reported qualitatively. The concentration must be greater than or equal to the cutoff to be reported as positive. The concentration at which the screening test can detect an individual drug or metabolite varies. The absence of expected drug(s) and/or drug metabolite(s) may indicate non-compliance, inappropriate timing of specimen collection relative to drug administration, poor drug absorption, diluted/adulterated urine, or limitations of testing. For medical purposes only; not valid for forensic use. Interpretive questions should be directed to the laboratory medical directors. Rivas Espinoza MD LAB URINE ORDERABLES Final R esult [facility] [address] [place] [address] * Urinalysis with Reflex Microscopic (01/13/2025 6:13 AM EDT) Color, Urine Light-Yellow Light-Yellow , Yellow, Dark-Yellow 01/13/2025 6:24 AM [facility] Appearance, Urine Clear Clear 01/13/2025 6:24 AM T [facility] Specific [place], Urine 1.005 1.005 - 1.035 01/13/2025 6:24 AM [facility] pH, Urine 6.5 5.0, 5.5, 6.0, 6.5, 7.0, 7.5, 8.0 01/13/2025 6:24 AM T [facility] Protein, Urine NEGATIVE NEGATIVE, 10 (TRACE), 20 (TRACE) mg/dL 01/13/2025 6:24 AM T [facility] Glucose, Urine Normal Normal mg/dL 01/13/2025 6:24 AM T [facility] Blood, Urine NEGATIVE NEGATIVE mg/dL 01/13/2025 6:24 AM EDT [facility] Ketones, Urine NEGATIVE NEGATIVE mg/dL 01/13/2025 6:24 AM T [facility] Bilirubin, Urine NEGATIVE NEGATIVE mg/dL 01/13/2025 6:24 AM T [facility] Urobilinogen, Urine Normal Normal mg/dL 01/13/2025 6:24 AM [facility] Nitrite, Urine NEGATIVE NEGATIVE 01/13/2025 6:24 AM T [facility] Leukocyte Esterase, Urine NEGATIVE NEGATIVE 01/13/2025 6:24 AM [facility] Urine Urine specimen / Unknown Non-blood Collection / Unknown 01/13/2025 6:13 AM EDT 01/13/2025 6:20 AM EDT Rivas Espinoza MD LAB URINE ORDERABLES Final R esult Performing Organization Address City/State/[facility] Co de Phone Number [facility] [address] [place] [address] * (ABNORMAL) CBC and Auto Differential (01/13/2025 12:59 AM EDT) Only the most recent of3 resultswithin the time period is included. WBC 8.9 4.4 - 11.3 x10*3/uL LAB HEMATOLOGY METHOD 01/13/2025 1:21 AM EDT [facility] nRBC 0.0 0.0 - 0.0 /100 WBCs LAB HEMATOLOGY METHOD 01/13/2025 1:21 AM EDT [facility] RBC 2.50(L) 4.00 - 5.20 x10*6/uL LAB HEMATOLOGY METHOD 01/13/2025 1:21 AM [facility] Hemoglobin 7.7(L) 12.0 - 16.0 g/dL LAB HEMATOLOGY METHOD 01/13/2025 1:21 AM [facility] Hematocrit 23.9(L) 36.0 - 46.0 % LAB HEMATOLOGY METHOD 01/13/2025 1:21 AM [facility] MCV 96 80 - 100 fL LAB HEMATOLOGY METHOD 01/13/2025 1:21 AM [facility] MCH 30.8 26.0 - 34.0 pg LAB HEMATOLOGY METHOD 01/13/2025 1:21 AM [facility] MCHC 32.2 32.0 - 36.0 g/dL LAB HEMATOLOGY METHOD 01/13/2025 1:21 AM [facility] RDW 17.6(H) 11.5 - 14.5 % LAB HEMATOLOGY METHOD 01/13/2025 1:21 AM [facility] Platelets 348 150 - 450 x10*3/uL LAB HEMATOLOGY METHOD 01/13/2025 1:21 AM [facility] Neutrophils % 51.4 40.0 - 80.0 % LAB HEMATOLOGY METHOD 01/13/2025 1:21 AM [facility] Immature Granulocytes %, Automated 0.3 0.0 - 0.9 % LAB HEMATOLOGY METHOD 01/13/2025 1:21 AM [facility] Comment:Immature Granulocyte Count (IG) includes promyelocytes, myelocytes and metamyelocytes but does not include bands. Percent differential counts (%) should be interpreted in the context of the absolute cell counts (cells/UL). Lymphocytes % 35.8 13.0 - 44.0 % LAB HEMATOLOGY METHOD 01/13/2025 1:21 AM [facility] Monocytes % 7.8 2.0 - 10.0 % LAB HEMATOLOGY METHOD 01/13/2025 1:21 AM [facility] Eosinophils % 4.0 0.0 - 6.0 % LAB HEMATOLOGY METHOD 01/13/2025 1:21 AM [facility] Basophils % 0.7 0.0 - 2.0 % LAB HEMATOLOGY METHOD 01/13/2025 1:21 AM EDT [facility] Neutrophils Absolute 4.57 1.20 - 7.70 x10*3/uL LAB HEMATOLOGY METHOD 01/13/2025 1:21 AM T [facility] Comment:Percent differential counts (%) should be interpreted in the context of the absolute cell counts (cells/uL). Immature Granulocytes Absolute, Automated 0.03 0.00 - 0.70 x10*3/uL LAB HEMATOLOGY METHOD 01/13/2025 1:21 AM EDT [facility] Lymphocytes Absolute 3.19 1.20 - 4.80 x10*3/uL LAB HEMATOLOGY METHOD 01/13/2025 1:21 AM T [facility] Monocytes Absolute 0.69 0.10 - 1.00 x10*3/uL LAB HEMATOLOGY METHOD 01/13/2025 1:21 AM EDT [facility] Eosinophils Absolute 0.36 0.00 - 0.70 x10*3/uL LAB HEMATOLOGY METHOD 01/13/2025 1:21 AM T [facility] Basophils Absolute 0.06 0.00 - 0.10 x10*3/uL LAB HEMATOLOGY METHOD 01/13/2025 1:21 AM [facility] Blood Venous blood specimen / Unknown Venipuncture / Unknown 01/13/2025 12:59 AM EDT 01/13/2025 1:07 AM EDT Rivas Espinoza MD LAB BLOOD ORDERABLES Final R esult [facility] [address] [place] [address] * (ABNORMAL) Acute Toxicology Panel, Blood (01/13/2025 12:59 AM EDT) Acetaminophen <10.0 10.0 - 30.0 ug/mL LAB CHEMISTRY METHOD 01/13/2025 1:33 AM T [facility] Salicylate <3 4 - 20 mg/dL LAB CHEMISTRY METHOD 01/13/2025 1:33 AM EDT [facility] Alcohol 251(H) <=10 mg/dL LAB CHEMISTRY METHOD 01/13/2025 1:33 AM EDT [facility] Blood Venous blood specimen / Unknown Venipuncture / Unknown 01/13/2025 12:59 AM EDT 01/13/2025 1:07 AM EDT Rivas Espinoza MD LAB BLOOD ORDERABLES Final R esult Performing Organization Address City/[facility]/ZIP Co de Phone Number [facility] [address] [place] [address] * (ABNORMAL) hCG, quantitative, (01/13/2025 12:59 AM EDT) [facility] Signature HCG, Beta-Quantitati ve 6(H) <5 mIU/mL LAB IMMUNOASSAY METHOD 01/13/2025 1:40 AM EDT [facility] Comment:Low-level positive H CG results can be seen in early , in eve- or post-menopausal females due to normal pituitary HCG production, or with analytic interference. Repeat testing in 48-72 hours can aid in assessing for as results should double in this time period. FSH measurement is recommended in eve- or post-menopausal females as concurrent elevation of FSH can support pituitary production as the source of the HCG elevation. Blood Venous blood specimen / Unknown Venipuncture / Unknown 01/13/2025 12:59 AM EDT 01/13/2025 1:07 AM EDT Narrative [facility] - 01/13/2025 1:40 AM EDT Total HCG measurement is performed using the [employer] Access Immunoassay which detects intact HCG and free beta HCG subunit. This test is not indicated for use as a tumor marker. HCG testing is performed using a different test methodology at [facility] than other [facility]. Direct result comparison should only be made within the same method. Rivas Espinoza MD LAB BLOOD ORDERABLES Final R esult Performing Organization Address City/[facility]/ZIP Co de Phone Number [facility] [address] [place] [address] * (ABNORMAL) Comprehensive Metabolic Panel (01/13/2025 12:59 AM EDT) Only the most recent of4 resultswithin the time period is included. Glucose 90 74 - 99 mg/dL LAB CHEMISTRY METHOD 01/13/2025 1:33 AM [facility] Sodium 141 136 - 145 mmol/L LAB CHEMISTRY METHOD 01/13/2025 1:33 AM [facility] Potassium 3.1(L) 3.5 - 5.3 mmol/L LAB CHEMISTRY METHOD 01/13/2025 1:33 AM [facility] Chloride 108(H) 98 - 107 mmol/L LAB CHEMISTRY METHOD 01/13/2025 1:33 AM [facility] Bicarbonate 21 21 - 32 mmol/L LAB CHEMISTRY METHOD 01/13/2025 1:33 AM [facility] Anion Gap 15 10 - 20 mmol/L LAB CHEMISTRY METHOD 01/13/2025 1:33 AM [facility] Urea Nitrogen 4(L) 6 - 23 mg/dL LAB CHEMISTRY METHOD 01/13/2025 1:33 AM [facility] Creatinine 0.40(L) 0.50 - 1.05 mg/dL LAB CHEMISTRY METHOD 01/13/2025 1:33 AM [facility] eGFR >90 >60 mL/min/1. 73m*2 LAB CHEMISTRY METHOD 01/13/2025 1:33 AM [facility] Comment: Calculations of estimated GFR are performed using the 2020 CKD-EPI Study Refit equation without the race variable for the IDMS-Traceable creatinine methods. https://jasn.asnjournals.org/content/early//ASN.7038675051 Calcium 8.2(L) 8.6 - 10.3 mg/dL LAB CHEMISTRY METHOD 01/13/2025 1:33 AM [facility] Albumin 2.8(L) 3.4 - 5.0 g/dL LAB CHEMISTRY METHOD 01/13/2025 1:33 AM [facility] Alkaline Phosphatase 153(H) 33 - 110 U/L LAB CHEMISTRY METHOD 01/13/2025 1:33 AM [facility] Total Protein 7.6 6.4 - 8.2 g/dL LAB CHEMISTRY METHOD 01/13/2025 1:33 AM EDT [facility] AST 144(H) 9 - 39 U/L LAB CHEMISTRY METHOD 01/13/2025 1:33 AM EDT [facility] Bilirubin, Total 1.6(H) 0.0 - 1.2 mg/dL LAB CHEMISTRY METHOD 01/13/2025 1:33 AM EDT [facility] ALT 30 7 - 45 U/L LAB CHEMISTRY METHOD 01/13/2025 1:33 AM EDT [facility] Comment:Patients treated wit h Sulfasalazine may generate falsely decreased results for ALT. Blood Venous blood specimen / Unknown Venipuncture / Unknown 01/13/2025 12:59 AM EDT 01/13/2025 1:07 AM EDT us Rivas Espinoza MD LAB BLOOD ORDERABLES Final R esult Performing Organization Address City/State/[facility] Co de Phone Number [facility] [address] [place] [phone] * Vascular US Upper PVR (01/04/2025 2:01 PM EDT) Anatomical Region Laterality Modality Upper Extremities Echocardiograp hy 01/04/2025 1:13 PM EDT Narrative 01/04/2025 3:14 PM EDT [place] [address] and Vascular Lab Report VASC US UPPER PVR Patient Name: LAUREN Fish Physician: [id number] Domenico Davenport DO Study Date: 01/04/2025 Ordering [id number] ISAEL Stokes Physician: MARGARET MRN/PID: [id number] Technologist: Rehana Hernández T Technologist 2: Date of 1980 /Age: years Gender: F Admission Status: Inpatient Location [facility] Performed: Diagnosis/ICD: Other specified soft tissue disorders-M79.89 Indication: New onset persistent bilateral pain in hands and feels cold CPT Codes: 95539 Peripheral artery PVR (multi segmental pressure CONCLUSIONS: Right Upper PVR: Baseline indices > 0.80 and waveforms appear normal. Left Upper PVR: Baseline indices > 0.80 and waveforms appear normal. Imaging & Doppler Findings: RIGHT Digit Pressures Index digit 147 mmHg Radial Ratio 1.17 Digit Ratio 1.08 LEFT Digit Pressures Index digit 131 mmHg Radial Ratio 0.99 Digit Ratio 0.96 Right Left Brachial Pressure 136 mmHg 136 mmHg Radial 159 mmHg 134 mmHg [id number] Davenport DO Final Procedure Note Domenico Davenport DO - 01/04/2025 [place] [address] and Vascular Lab Report VASC US UPPER PVR Patient Name: LAUREN Fish Physician: [id number] Montano Study Date: 01/04/2025 Ordering [id number] AKIN Physician: MARGARET MRN/PID: [id number] Technologist: Rehana Ibarra Technologist 2: Date of 1980 /Age: years Gender: F Admission Status: Inpatient Location [facility] Performed: Diagnosis/ICD: Other specified soft tissue disorders-M79.89 Indication: New onset persistent bilateral pain in hands and feelscold CPT Codes: 84327 Peripheral artery PVR (multi segmental pressure CONCLUSIONS: Right Upper PVR: Baseline indices > 0.80 and waveforms appear normal. Left Upper PVR: Baseline indices > 0.80 and waveforms appear normal. Imaging & Doppler Findings: RIGHT Digit Pressures Index digit 147 mmHg Radial Ratio 1.17 Digit Ratio 1.08 LEFT Digit Pressures Index digit 131 mmHg Radial Ratio 0.99 Digit Ratio 0.96 Right Left Brachial Pressure 136 mmHg 136 mmHg Radial 159 mmHg 134 mmHg [id number] Domenico Davenport DO Final us Isael Robles MD CV VASCULAR PROCEDURES Fin al Result * (ABNORMAL) CBC (01/04/2025 11:34 AM EDT) Only the most recent of5 resultswithin the time period is included. WBC 9.1 4.4 - 11.3 x10*3/uL LAB HEMATOLOGY METHOD 01/04/2025 12:41 PM EDT [facility] nRBC 0.0 0.0 - 0.0 /100 WBCs LAB HEMATOLOGY METHOD 01/04/2025 12:41 PM EDT [facility] RBC 2.27(L) 4.00 - 5.20 x10*6/uL LAB HEMATOLOGY METHOD 01/04/2025 12:41 PM EDT [facility] Hemoglobin 7.3(L) 12.0 - 16.0 g/dL LAB HEMATOLOGY METHOD 01/04/2025 12:41 PM EDT [facility] Hematocrit 23.9(L) 36.0 - 46.0 % LAB HEMATOLOGY METHOD 01/04/2025 12:41 PM EDT [facility] MCV 105(H) 80 - 100 fL LAB HEMATOLOGY METHOD 01/04/2025 12:41 PM EDT [facility] MCH 32.2 26.0 - 34.0 pg LAB HEMATOLOGY METHOD 01/04/2025 12:41 PM EDT [facility] MCHC 30.5(L) 32.0 - 36.0 g/dL LAB HEMATOLOGY METHOD 01/04/2025 12:41 PM EDT [facility] RDW 17.5(H) 11.5 - 14.5 % LAB HEMATOLOGY METHOD 01/04/2025 12:41 PM EDT [facility] Platelets 279 150 - 450 x10*3/uL LAB HEMATOLOGY METHOD 01/04/2025 12:41 PM EDT [facility] Blood Venous blood specimen / Unknown Venipuncture / Unknown 01/04/2025 11:34 AM EDT 01/04/2025 12:18 PM EDT us Isael Robles MD LAB BLOOD ORDERABLES Final Result [facility] [address] [facility] [id number] [place] [address] * XR cervical spine complete 4-5 views (01/03/2025 11:42 PM EDT) Anatomical Region Laterality Modality Musculoskeletal, Spine Computed Radiography 01/04/2025 10:2 8 AM EDT 01/04/2025 10:28 AM EDT Impressions 01/04/2025 10:27 AM EDT Mild degenerative change of the spine without osseous injury evident. MACRO: None Signed by: Sunil Mathur 01/04/2025 10:27 AM Dictation workstation: [id number] Narrative 01/04/2025 10:27 AM EDT Interpreted By: Sunil Mathur, STUDY: Cervical spine dated 01/03/2025. INDICATION: Signs/Symptoms:bilateral arm/hand pain COMPARISON: None. ACCESSION NUMBER(S): [id number] ORDERING CLINICIAN: ISAEL ROBLES TECHNIQUE: Six views of the cervical spine. FINDINGS: The cervical spine is seen to C7/T1. Vertebral body height and alignment are maintained. No fracture or dislocation is evident. There is mild multilevel degenerative change of the cervical spine. There is multilevel bilateral neural foraminal narrowing. No prevertebral soft tissue swelling is evident. Associated soft tissues are grossly unremarkable. Procedure Note Sunil Mathur MD - 01/04/2025 Interpreted By: Sunil Mathur, STUDY: Cervical spine dated 01/03/2025. INDICATION: Signs/Symptoms:bilateral arm/hand pain COMPARISON: None. ACCESSION NUMBER(S): [id number] ORDERING CLINICIAN: ISAEL ROBLES TECHNIQUE: Six views of the cervical spine. FINDINGS: The cervical spine is seen to C7/T1. Vertebral body height and alignment are maintained. No fracture or dislocation is evident. There is mild multilevel degenerative change of the cervical spine. There is multilevel bilateral neural foraminal narrowing. No prevertebral soft tissue swelling is evident. Associated soft tissues are grossly unremarkable. IMPRESSION: Mild degenerative change of the spine without osseous injury evident. MACRO: None Signed by: Sunil Mathur 01/04/2025 10:27 AM Dictation workstation: [id number] us Isael Robles MD IMG XR PROCEDURES Final Re sult * XR hand 3+ views bilateral (01/03/2025 2:54 PM EDT) Anatomical Region Laterality Modality Musculoskeletal Bilateral Computed Radiogr aphy 01/03/2025 3:04 PM EDT 01/03/2025 3:04 PM EDT Impressions 01/03/2025 3:03 PM EDT Unremarkable bilateral hand radiographs. MACRO: None. Signed by: Kylie Dunn 01/03/2025 3:03 PM Dictation workstation: [id number] Narrative 01/03/2025 3:03 PM EDT Interpreted By: Kylie Dunn, STUDY: Bilateral hands, 3 views each. INDICATION: Signs/Symptoms:bilateral hand pain COMPARISON: None ACCESSION NUMBER(S): [id number] ORDERING CLINICIAN: ISAEL ROBLES FINDINGS: Left hand: No acute fracture or malalignment. No significant degenerative changes. Soft tissues are within normal limits. Right hand: No acute fracture or malalignment. No significant degenerative changes. Soft tissues are within normal limits. Procedure Note Kylie Dunn MD - 01/03/2025 Interpreted By: Kylie Dunn, STUDY: Bilateral hands, 3 views each. INDICATION: Signs/Symptoms:bilateral hand pain COMPARISON: None ACCESSION NUMBER(S): [id number] ORDERING CLINICIAN: ISAEL ROBLES FINDINGS: Left hand: No acute fracture or malalignment. No significant degenerative changes. Soft tissues are within normal limits. Right hand: No acute fracture or malalignment. No significant degenerative changes. Soft tissues are within normal limits. IMPRESSION: Unremarkable bilateral hand radiographs. MACRO: None. Signed by: Kylie Dunn 01/03/2025 3:03 PM Dictation workstation: [id number] us Isael Robles MD IMG XR PROCEDURES Final Re sult * Rheumatoid Factor (01/03/2025 5:46 AM EDT) Rheumatoid Factor <10 0 - 15 IU/mL LAB CHEMISTRY METHOD 01/04/2025 12:55 PM EDT [facility] Blood Venous blood specimen / Unknown Venipuncture / Unknown 01/03/2025 5:46 AM EDT 01/03/2025 5:58 AM EDT Isael Robles MD LAB BLOOD ORDERABLES Final Result Performing Organization Address [facility] de Phone Number [facility] [address] [place] [id number] * (ABNORMAL) C-reactive protein (01/03/2025 5:46 AM EDT) Only the most recent of2 resultswithin the time period is included. [facility] C-Reactive Protein 1.55(H) <1.00 mg/dL LAB CHEMISTRY METHOD 01/03/2025 2:50 PM EDT [facility] Blood Venous blood specimen / Unknown Venipuncture / Unknown 01/03/2025 5:46 AM EDT 01/03/2025 5:58 AM EDT Isael Robles MD LAB BLOOD ORDERABLES Final Result Performing Organization Address [facility] de Phone Number [facility] [address] [place] [phone] * Basic metabolic panel (01/03/2025 5:46 AM EDT) Pathologist [facility] Glucose 98 74 - 99 mg/dL LAB CHEMISTRY METHOD 01/03/2025 6:31 AM EDT [facility] Sodium 138 136 - 145 mmol/L LAB CHEMISTRY METHOD 01/03/2025 6:31 AM EDT [facility] Potassium 3.8 3.5 - 5.3 mmol/L LAB CHEMISTRY METHOD 01/03/2025 6:31 AM EDT [facility] Chloride 106 98 - 107 mmol/L LAB CHEMISTRY METHOD 01/03/2025 6:31 AM EDT [facility] Bicarbonate 22 21 - 32 mmol/L LAB CHEMISTRY METHOD 01/03/2025 6:31 AM EDT [facility] Anion Gap 14 10 - 20 mmol/L LAB CHEMISTRY METHOD 01/03/2025 6:31 AM EDT [facility] Urea Nitrogen 8 6 - 23 mg/dL LAB CHEMISTRY METHOD 01/03/2025 6:31 AM EDT [facility] Creatinine 0.59 0.50 - 1.05 mg/dL LAB CHEMISTRY METHOD 01/03/2025 6:31 AM EDT [facility] eGFR >90 >60 mL/min/1.7 3m*2 LAB CHEMISTRY METHOD 01/03/2025 6:31 AM EDT [facility] Comment: Calculations of estimated GFR are performed using the 2020 CKD-EPI Study Refit equation without the race variable for the IDMS-Traceable creatinine methods. https://jasn.asnjournals.org/content/early//ASN.4823145979 Calcium 9.0 8.6 - 10.6 mg/dL LAB CHEMISTRY METHOD 01/03/2025 6:31 AM EDT [facility] Blood Venous blood specimen / Unknown Venipuncture / Unknown 01/03/2025 5:46 AM EDT 01/03/2025 5:58 AM EDT Martin Maldonado SOLE [facility] LAB BLOOD ORDERABLES Final Result [facility] [address] [place] [address] * HC CRITICAL CARE, E/M 30-74 MINUTES (01/02/2025 11:54 PM EDT) Narrative Young Schmitz MD - 01/02/2025 11:54 PM EDT Young Schmitz MD 01/05/2025 3:42 AM Critical Care Performed by: Young Schmitz MD Authorized by: Young Schmitz MD Critical care provider statement: Critical care time (minutes): 30 Critical care time was exclusive of: Separately billable procedures and treating other patients and teaching time Critical care was necessary to treat or prevent imminent or life-threatening deterioration of the following conditions: 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) Critical care was time spent personally by me on the following activities: Development of treatment plan with patient or surrogate, evaluation of patient's response to treatment, examination of patient, ordering and performing treatments and interventions, ordering and review of laboratory studies, ordering and review of radiographic studies, re-evaluation of patient's condition and review of old charts Care discussed with: admitting provider us Young Schmitz MD IN CLINIC/BEDSIDE ORDERABLES Fin al Result * Vascular US upper extremity venous duplex bilateral (01/02/2025 11:39 PM EDT) Anatomical Region Laterality Modality Upper Extremities Ultrasound 01/03/2025 12:0 0 AM EDT 01/03/2025 12:45 AM EDT Impressions 01/03/2025 12:44 AM EDT 1. Partially occlusive thrombus of the left median cubital vein. 2. No evidence of right upper extremity deep venous thrombosis. I personally reviewed the image(s) / study and I agree with the findings as stated by Carlota Burrell MD. This study was interpreted at [place], [place]. MACRO: None. Signed by: Ace Vick 01/03/2025 12:44 AM Dictation workstation: [id number] Narrative 01/03/2025 12:44 AM EDT Interpreted By: Ace Vick and Jiang Sirui STUDY: [facility] US UPPER EXTREMITY VENOUS DUPLEX BILATERAL; 01/02/2025 11:39 pm INDICATION: Signs/Symptoms:bilateral arm swelling, worse on RUE. COMPARISON: None. ACCESSION NUMBER(S): [id number] ORDERING CLINICIAN: ZAKI DIXON TECHNIQUE: Grayscale, color and spectral Doppler sonographic imaging of the right and left upper extremity venous system. FINDINGS: RIGHT: Segmental visualization of the right internal jugular vein, subclavian vein, axillary vein, basilic vein, brachial veins and cephalic vein demonstrate normal rushing scale appearance, compressibility, color flow and venous waveforms. LEFT: Partially occlusive thrombus in the left median cubital vein. Segmental visualization of the left internal jugular vein, subclavian vein, axillary vein, basilic vein, brachial veins and cephalic vein demonstrate normal rushing scale appearance, compressibility, color flow and venous waveforms. OTHER: None. Procedure Note Ace Vick MD - 01/03/2025 Interpreted By: Ace Vick and Jiang Sirui STUDY: [facility] US UPPER EXTREMITY VENOUS DUPLEX BILATERAL; 01/02/2025 11:39 pm INDICATION: Signs/Symptoms:bilateral arm swelling, worse on RUE. COMPARISON: None. ACCESSION NUMBER(S): [id number] ORDERING CLINICIAN: ZAKI DIXON TECHNIQUE: Grayscale, color and spectral Doppler sonographic imaging of the right and left upper extremity venous system. FINDINGS: RIGHT: Segmental visualization of the right internal jugular vein, subclavian vein, axillary vein, basilic vein, brachial veins and cephalic vein demonstrate normal rushing scale appearance, compressibility, color flow and venous waveforms. LEFT: Partially occlusive thrombus in the left median cubital vein. Segmental visualization of the left internal jugular vein, subclavian vein, axillary vein, basilic vein, brachial veins and cephalic vein demonstrate normal rushing scale appearance, compressibility, color flow and venous waveforms. OTHER: None. IMPRESSION: 1. Partially occlusive thrombus of the left median cubital vein. 2. No evidence of right upper extremity deep venous thrombosis. I personally reviewed the image(s) / study and I agree with the findings as stated by Carlota Burrell MD. This study was interpreted at [facility], [place], [place]. MACRO: None. Signed by: Ace Vick 01/03/2025 12:44 AM Dictation workstation: [id number] us Zaki Dixon DO CV VASCULAR PROCEDURES Fin al Result * Vascular US lower extremity venous duplex bilateral (01/02/2025 7:47 PM EDT) Anatomical Region Laterality Modality Lower Extremities Ultrasound 01/02/2025 8:06 PM EDT 01/02/2025 8:27 PM EDT Impressions 01/02/2025 8:26 PM EDT Limited evaluation secondary to patient body habitus and overlying edema. 1. 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 2. No deep venous thrombosis in the imaged vessels of the right leg, noting nonvisualization of the right peroneal vein. I personally reviewed the image(s) / study and I agree with the findings as stated by Carlota Burrell MD. This study was interpreted at [facility], [place], [place]. MACRO: None. Signed by: Ace Vick 01/02/2025 8:26 PM Dictation workstation: [id number] 01/02/2025 8:26 PM EDT Interpreted By: Ace Vick and Jiang Sirui STUDY: [facility] US LOWER EXTREMITY VENOUS DUPLEX BILATERAL; 01/02/2025 7:47 pm INDICATION: Signs/Symptoms:hx of dvt, swelling in legs. COMPARISON: Ultrasound 11/23/2024 ACCESSION NUMBER(S): [id number] ORDERING CLINICIAN: JERAMY ROJAS TECHNIQUE: Grayscale, color and spectral Doppler sonographic images of the bilateral lower extremity deep venous system. FINDINGS: RIGHT: There is normal compressibility of the common femoral vein, saphenous femoral junction, profunda femoris, femoral vein and popliteal vein. The right posterior tibial vein demonstrates normal color flow and compressibility. The right peroneal vein is not well visualized. There is normal spontaneous and phasic variation throughout the right lower extremity by spectral doppler. 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 The left deep femoral vein and posterior tibial veins are not well evaluated. The left peroneal vein is not well visualized. OTHER FINDINGS: None. Procedure Note Ace Vick MD - 01/02/2025 Interpreted By: Ace Vick and Jiang Sirui STUDY: [facility] US LOWER EXTREMITY VENOUS DUPLEX BILATERAL; 01/02/2025 7:47 pm INDICATION: Signs/Symptoms:hx of dvt, swelling in legs. COMPARISON: Ultrasound 11/23/2024 ACCESSION NUMBER(S): [id number] ORDERING CLINICIAN: JERAMY ROJAS TECHNIQUE: Grayscale, color and spectral Doppler sonographic images of the bilateral lower extremity deep venous system. FINDINGS: RIGHT: There is normal compressibility of the common femoral vein, saphenous femoral junction, profunda femoris, femoral vein and popliteal vein. The right posterior tibial vein demonstrates normal color flow and compressibility. The right peroneal vein is not well visualized. There is normal spontaneous and phasic variation throughout the right lower extremity by spectral doppler. 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 The left deep femoral vein and posterior tibial veins are not well evaluated. The left peroneal vein is not well visualized. OTHER FINDINGS: None. IMPRESSION: Limited evaluation secondary to patient body habitus and overlying edema. 1. 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 2. No deep venous thrombosis in the imaged vessels of the right leg, noting nonvisualization of the right peroneal vein. I personally reviewed the image(s) / study and I agree with the findings as stated by Cralota Burrell MD. This study was interpreted at [place], [place]. MACRO: None. Signed by: Ace Vick 01/02/2025 8:26 PM Dictation workstation: [id number] us Jeramy Rojas MD CV VASCULAR PROCEDURES Final R esult * Troponin, High Sensitivity, 1 Hour (01/02/2025 1:12 PM EDT) [facility] Troponin I, High Sensitivity (CMC) 7 0 - 34 ng/L LAB IMMUNOASSAY METHOD 01/02/2025 2:08 PM EDT [facility] Blood Venous blood specimen / Unknown 01/02/2025 1:12 PM EDT 01/02/2025 1:39 PM EDT Narrative [facility] - 01/02/2025 2:08 PM EDT Less than 99th percentile of normal range cutoff- Female and children under 18 years old <35 ng/L; Male <54 ng/L: Negative Repeat testing should be performed if clinically indicated. Female and children under 18 years old 35-120 ng/L; Male 54-120 ng/L: Consistent with possible cardiac damage and possible increased clinical risk. Serial measurements may help to assess extent of myocardial damage. >120 ng/L: Consistent with cardiac damage, increased clinical risk and myocardial infarction. Serial measurements may help assess extent of myocardial damage. NOTE: Children less than 1 year old may have higher baseline troponin levels and results should be interpreted in conjunction with the overall clinical context. NOTE: Troponin I testing is performed using a different testing methodology at [facility] than at other [facility]. Direct result comparisons should only be made within the same method. Zaki Bowen Cadiz DO LAB BLOOD ORDERABLES Final Result Performing Organization Address [facility] Co de Phone Number [facility] [address] [place], [place] [phone] * (ABNORMAL) Coagulation Screen (01/02/2025 1:12 PM EDT) Protime 16.8(H) 9.8 - 12.4 seconds LAB COAGULATION METHOD 01/02/2025 1:56 PM EDT [facility] INR 1.5(H) 0.9 - 1.1 LAB COAGULATION METHOD 01/02/2025 1:56 PM EDT [facility] aPTT 27 26 - 36 seconds LAB COAGULATION METHOD 01/02/2025 1:56 PM EDT [facility] Blood Venous blood specimen / Unknown 01/02/2025 1:12 PM EDT 01/02/2025 1:39 PM EDT Narrative [facility] - 01/02/2025 1:56 PM EDT The APTT is no longer used for monitoring Unfractionated Heparin Therapy. For monitoring Heparin Therapy, use the Heparin Assay. Zaki Dixon LAB BLOOD ORDERABLES Final Result Performing Organization Address [facility] Co de Phone Number [facility] [address] [place] [phone] * XR chest 2 views (01/02/2025 12:29 PM EDT) Anatomical Region Laterality Modality Thoracic, Chest Computed Radiogr aphy 01/02/2025 12:3 2 PM EDT 01/02/2025 12:32 PM EDT Impressions 01/02/2025 12:30 PM EDT 1. No evidence of acute cardiopulmonary process. MACRO: None Signed by: Chele Whatley 01/02/2025 12:30 PM Dictation workstation: [id number] Narrative 01/02/2025 12:30 PM EDT Interpreted By: Chele Whatley, STUDY: XR CHEST 2 VIEWS; 01/02/2025 12:29 pm INDICATION: Signs/Symptoms:SOB, r/o pleural effusions. COMPARISON: 12/24/2024 ACCESSION NUMBER(S): [id number] ORDERING CLINICIAN: ZAKI DIXON FINDINGS: CARDIOMEDIASTINAL SILHOUETTE: Cardiomediastinal silhouette is normal in size and configuration. LUNGS: Lungs are clear. ABDOMEN: No remarkable upper abdominal findings. BONES: No acute osseous changes. Procedure Note Chele Whatley MD - 01/02/2025 Interpreted By: Chele Whatley, STUDY: XR CHEST 2 VIEWS; 01/02/2025 12:29 pm INDICATION: Signs/Symptoms:SOB, r/o pleural effusions. COMPARISON: 12/24/2024 ACCESSION NUMBER(S): [id number] ORDERING CLINICIAN: ZAKI DIXON FINDINGS: CARDIOMEDIASTINAL SILHOUETTE: Cardiomediastinal silhouette is normal in size and configuration. LUNGS: Lungs are clear. ABDOMEN: No remarkable upper abdominal findings. BONES: No acute osseous changes. IMPRESSION: 1. No evidence of acute cardiopulmonary process. MACRO: None Signed by: Chele Whatley 01/02/2025 12:30 PM Dictation workstation: [id number] us Zaki Dixon DO IMG XR PROCEDURES Final Re sult * hCG, Urine, Qualitative (01/02/2025 12:11 PM EDT) HCG, Urine NEGATIVE NEGATIVE 01/02/2025 1:12 PM EDT [facility] Urine Urine specimen / Unknown Non-blood Collection / Unknown 01/02/2025 12:11 PM EDT 01/02/2025 12:52 PM EDT us Zaki Dixon DO LAB URINE ORDERABLES Final Result [facility] [address] [place] [phone] * ECG 12 lead (01/02/2025 11:56 AM EDT) Only the most recent of3 resultswithin the time period is included. Ventricular Rate 71 BPM MUSE Atrial Rate 71 BPM MUSE SD Interval 136 ms MUSE QRS Duration 74 ms MUSE QT Interval 370 ms MUSE QTC Calculation(Baze tt) 402 ms MUSE P [place] 73 degrees MUSE R [place] -20 degrees MUSE T [place] 12 degrees MUSE QRS Count 11 beats MUSE Q Onset 214 ms MUSE P Onset 146 ms MUSE P Offset 192 ms MUSE T Offset 399 ms MUSE QTC Frederic[place] 391 ms MUSE 01/03/2025 12:3 5 AM EDT 01/03/2025 6:20 AM EDT Narrative MUSE - 01/03/2025 6:20 AM EDT Normal sinus rhythm Minimal voltage criteria for LVH, may be normal variant ( R in aVL ) Nonspecific T wave abnormality Abnormal ECG When compared with ECG of 02-JAN-2025 10:45, Non-specific change in ST segment in Lateral leads Nonspecific T wave abnormality, worse in Inferior leads Nonspecific T wave abnormality, worse in Anterolateral leads QT has shortened See ED provider note for full interpretation and clinical correlation Confirmed by Stephenie Angel ([id number]) on 01/03/2025 6:20:15 AM Procedure Note Stephenie Angel, SOLE BUFFER-CRAB FISHER - 01/03/2025 Normal sinus rhythm Minimal voltage criteria for LVH, may be normal variant ( R in aVL ) Nonspecific T wave abnormality Abnormal ECG When compared with ECG of 02-JAN-2025 10:45, Non-specific change in ST segment in Lateral leads Nonspecific T wave abnormality, worse in Inferior leads Nonspecific T wave abnormality, worse in Anterolateral leads QT has shortened See ED provider note for full interpretation and clinical correlation Confirmed by Stephenie Angel ([id number]) on 01/03/2025 6:20:15 AM us Zaki Dixon DO ECG ORDERABLES Final Resu lt MUSE * Light Blue Top (01/02/2025 11:47 AM EDT) [facility] Extra Tube 293 01/03/2025 8:3 7 AM EDT [facility] Blood Venous blood specimen / Unknown Venipuncture / Unknown 01/02/2025 11:47 AM EDT 01/02/2025 12:33 PM EDT [employer] DO LAB BLOOD ORDERABLES Final Result Performing Organization Address [facility] de Phone Number [facility] [address] [place], [place] [phone] * Troponin I, High Sensitivity, Initial (01/02/2025 11:45 AM EDT) [facility] Troponin I, High Sensitivity (CMC) 7 0 - 34 ng/L LAB IMMUNOASSAY METHOD 01/02/2025 1:08 PM EDT [facility] Blood Venous blood specimen / Unknown Venipuncture / Unknown 01/02/2025 11:45 AM EDT 01/02/2025 12:33 PM EDT Narrative [facility] - 01/02/2025 1:08 PM EDT Less than 99th percentile of normal range cutoff- Female and children under 18 years old <35 ng/L; Male <54 ng/L: Negative Repeat testing should be performed if clinically indicated. Female and children under 18 years old 35-120 ng/L; Male 54-120 ng/L: Consistent with possible cardiac damage and possible increased clinical risk. Serial measurements may help to assess extent of myocardial damage. >120 ng/L: Consistent with cardiac damage, increased clinical risk and myocardial infarction. Serial measurements may help assess extent of myocardial damage. NOTE: Children less than 1 year old may have higher baseline troponin levels and results should be interpreted in conjunction with the overall clinical context. NOTE: Troponin I testing is performed using a different testing methodology at [facility] than at other [facility]. Direct result comparisons should only be made within the same method. us Zaki L Cadiz DO LAB BLOOD ORDERABLES Final Result Performing Organization Address [facility]/ZIP Co de Phone Number [facility] [id number] [place] [phone] * B-type natriuretic peptide (01/02/2025 11:45 AM EDT) Pathologist [facility] BNP 87 0 - 99 pg/mL LAB IMMUNOASSAY METHOD 01/02/2025 1:15 PM EDT [facility] Blood Venous blood specimen / Unknown Venipuncture / Unknown 01/02/2025 11:45 AM EDT 01/02/2025 12:34 PM EDT Narrative [facility] - 01/02/2025 1:15 PM EDT <100 pg/mL - Heart failure unlikely 100-299 pg/mL - Intermediate probability of acute heart failure exacerbation. Correlate with clinical context and patient history. >=300 pg/mL - Heart Failure likely. Correlate with clinical context and patient history. Biotin interference may cause falsely decreased results. Patients taking a Biotin dose of up to 5 mg/day should refrain from taking Biotin for 24 hours before sample collection. Providers may contact their local laboratory for further information. Zaki Andrés [employer] LAB BLOOD ORDERABLES Final Result Performing Organization Address City/[facility] Co de Phone Number [facility] [address] [place] [phone] * Magnesium (01/02/2025 11:45 AM EDT) [facility] Magnesium 2.06 1.60 - 2.40 mg/dL LAB CHEMISTRY METHOD 01/02/2025 1:09 PM EDT [facility] Blood Venous blood specimen / Unknown Venipuncture / Unknown 01/02/2025 11:45 AM EDT 01/02/2025 12:33 PM EDT [employer] LAB BLOOD ORDERABLES Final Result Performing Organization Address [facility] de Phone Number [facility] [address] [place] [phone] * HC TTE F-UP OR LMTD - TTE LIMITED (01/02/2025 10:45 AM EDT) Anatomical Region Laterality Modality Head neck Other Narrative 01/02/2025 10:45 AM EDT Zaki Dixon DO 01/04/2025 1:16 PM Performed by: Nan Steiner MD Authorized by: Zaki Dixon DO Cardiac Indications: fluid overload Procedure: Cardiac Ultrasound Findings: Views: parasternal long, parasternal short and apical four Effusion: The pericardial space was visualized and was positive for a PERICARDIAL EFFUSION. (Possible Trivial) Activity: Ventricular contractions were visualized. LV: LV systolic function was NORMAL. RV: RV size was NORMAL. Impression: Cardiac: The focused cardiac ultrasound exam was NORMAL. Comments: Possible trivial pericardial effusion otherwise normal us Zaki Dixon DO IN CLINIC/BEDSIDE ORDERABL ES Final Result * SST TOP (12/28/2024 5:35 AM EDT) Pathologist [facility] Extra Tube Hold for add-ons. 12/28/2024 4:48 PM EDT [facility] Comment:Auto resulted. Blood Venous blood specimen / Unknown 12/28/2024 5:35 AM EDT 12/28/2024 7:32 AM EDT us Kristin Zamorano MD LAB BLOOD ORDERABLES Final Result Performing Organization Address City/State/[facility] Co de Phone Number [facility] [address] [phone] * HIV 1/2 Antigen/Antibody Screen with Reflex to Confirmation (12/02/2024 4:19 PM EDT) Pathologist [facility] HIV 1/2 Antigen/Antibo dy Screen with Reflex to Confirmation Nonreactive Nonreactive LAB IMMUNOASSAY METHOD 12/03/2024 5:00 PM EDT [facility] Blood Venous blood specimen / Unknown Venipuncture / Unknown 12/02/2024 4:19 PM EDT 12/02/2024 4:33 PM EDT Narrative [facility] - 12/03/2024 5:00 PM EDT HIV Ag/Ab screen is performed using the [employer] HIV Ag/Ab Combo assay which detects the presence of HIV p24 antigen as well as antibodies to HIV-1 (Group M and O) and HIV-2. No laboratory evidence of HIV infection. If acute HIV infection is suspected, consider testing for HIV RNA by PCR (viral load). us Felipe Fagan MD LAB BLOOD ORDERABLES Final Result Performing Organization Address City/[facility]/ZIP Co de Phone Number [facility] [address] [id number] * Hepatitis panel, acute (12/02/2024 4:00 AM EDT) Hepatitis B Surface AG Nonreactive Nonreactive LAB IMMUNOASSAY METHOD 12/02/2024 8:57 PM EDT [facility] Comment: Biotin interference may cause falsely decreased results. Patients taking a Biotin dose of up to 5 mg/day should refrain from taking Biotin for 24 hours before sample collection. Providers may contact their local laboratory for further information. Hepatitis A AB- IgM Nonreactive Nonreactive LAB IMMUNOASSAY METHOD 12/02/2024 8:57 PM EDT [facility] Comment: Biotin interference may cause falsely decreased results. Patients taking a Biotin dose of up to 5 mg/day should refrain from taking Biotin for 24 hours before sample collection. Providers may contact their local laboratory for further information. Hepatitis B Core AB; IgM Nonreactive Nonreactive LAB IMMUNOASSAY METHOD 12/02/2024 8:57 PM EDT [facility] Comment: Results from patients taking biotin supplements or receiving high-dose biotin therapy should be interpreted with caution due to possible interference with this test. Providers may contact their local laboratory for further information. Hepatitis C AB Nonreactive Nonreactive LAB IMMUNOASSAY METHOD 12/02/2024 8:57 PM EDT [facility] Comment:Results from patient s taking biotin supplements or receiving high-dose biotin therapy should be interpreted with caution due to possible interference with this test. Providers may contact their local laboratory for further information. Blood Venous blood specimen / Unknown Venipuncture / Unknown 12/02/2024 4:00 AM EDT 12/02/2024 5:08 AM EDT Felipe Fagan MD LAB BLOOD ORDERABLES Final Result Performing Organization Address City/[facility]/ZIP Co de Phone Number [facility] [id number] [place] [phone] * (ABNORMAL) TSH with reflex to Free T4 if abnormal (12/02/2024 12:43 AM EDT) Pathologist [facility] Thyroid Stimulating Hormone 9.82(H) 0.44 - 3.98 mIU/L LAB IMMUNOASSAY METHOD 12/02/2024 1:51 AM EDT [facility] Blood Venous blood specimen / Unknown Venipuncture / Unknown 12/02/2024 12:43 AM EDT 12/02/2024 1:18 AM EDT Narrative [facility] - 12/02/2024 1:51 AM EDT TSH testing is performed using different testing methodology at [facility] than at other [facility]. Direct result comparisons should only be made within the same method. us Nicki Chino MD LAB BLOOD ORDERABLES Final Resu lt [facility] [address] [place] [phone] * CONVERTED GRAIN UNLOADER MACHINE CYTOLOGY (10/10/2021 12:00 AM EST) Pathologist [facility] Pathology Report Date of Procedure: 10/10/2021 Pathologist: PRERY GUILLEN MD Date Reported: 10/23/2021 Date Received: 10/10/2021 Submitting Physician: MAURO MATTA MD FINAL CYTOLOGICAL INTERPRETATION Squamous and/or Glandular Abnormality A. THINPREP PAP CERVICAL: Specimen adequacy: SATISFACTORY FOR EVALUATION. Quality Indicator: Endocervical/transf ormation zone component is present. General Categorization: EPITHELIAL CELL ABNORMALITY - SQUAMOUS CELL. See Interpretation. Descriptive Interpretation: LOW GRADE SQUAMOUS INTRAEPITHELIAL LESION (LSIL) - CERVIX. SHIFT IN VAGINAL ERIKA SUGGESTIVE OF BACTERIAL VAGINOSIS. HIGH RISK HPV TEST RESULT: HPV GENOTYPE 16 NEGATIVE HPV GENOTYPE 18 NEGATIVE HPV GENOTYPE OTHER NEGATIVE Reference Range: Negative Slide(s) initially screened by a [employer]os[employer] Engineer at [facility], [address] [place] [phone] Testing for high-risk (HR) type of human papilloma virus (HPV) is performed by the [employer] trae HPV Test. The trae HPV Test is a qualitative polymerase chain reaction that amplifies DNA of HPV16, HPV18 and 12 other high-risk HPV types (31, 33, 35, 39, 45, 51, 52, 56, 58, 59, 66, and 68) associated with cervical cancer and its precursor lesions. A positive result indicates the presence of HPV DNA due to one or more of the 14 genotypes: 16, 18, 31, 33, 35, 39, 45, 51, 52, 56, 58, 59, 66, and 68. Negative results indicate HPV DNA concentrations are undetectable or below the pre-set threshold for detection. False negative results may be associated with unoptimized sampling. A negative HR HPV result does not exclude the possibility of future cytologic HSIL or underlying CIN2-3 or cancer. This test is approved for cervical specimens by the [place] Food and Drug Administration. Results of this test should be interpreted in conjunction with the patient's Pap test results. Please refer to ASC current guidelines for the use of HPV DNA testing, result interpretation, and patient management. The performance of this test was verified by the Molecular Diagnostic Laboratory at [facility]. The lab is certified under the Clinical Laboratory Amendments of 1988 (CLIA 88) as qualified to perform high complexity clinical laboratory testing. This specimen has been analyzed by the [employer] Imaging System ([employer] an automated imaging and review system, which assists the laboratory in evaluating cells on ThinPrep Pap tests. Following automated imaging, selected boogie from every slide were reviewed by a party director and/or pathologist. Electronically Signed Out By PERRY GUILLEN MD/ROSIE/LINDA By the signature on this report, the individual or group listed as making the Final Interpretation/Diag nosis certifies that they have reviewed this case. Educational Note: Cervical cytology is a screening procedure primarily for squamous cancers and precursors and has associated false-negative and false-positive results as evidenced by published data. Your patient's test should be interpreted in this context, together with patient's history and clinical findings. Regular sampling and follow-up of unexplained clinical signs and symptoms are recommended to minimize false negative results. Clinical History Date of Last Menstrual Period: UNKNOWN Other Clinical Conditions: COTEST HPV(Genotype) except for ASC-H, HSIL, Carcinoma - Include HPV Genotype testing Source of Specimen A: THINPREP PAP CERVICAL [facility] Department of Pathology [id number] [id number] [facility] COPATH CONVERTED FINAL DIAGNOSIS A. THINPREP PAP CERVICAL: Specimen adequacy: SATISFACTORY FOR EVALUATION. Quality Indicator: Endocervical/transf ormation zone component is present. General Categorization: EPITHELIAL CELL ABNORMALITY - SQUAMOUS CELL. See Interpretation. Descriptive Interpretation: LOW GRADE SQUAMOUS INTRAEPITHELIAL LESION (LSIL) - CERVIX. SHIFT IN VAGINAL ERIKA SUGGESTIVE OF BACTERIAL VAGINOSIS. HIGH RISK HPV TEST RESULT: HPV GENOTYPE 16 NEGATIVE HPV GENOTYPE 18 NEGATIVE HPV GENOTYPE OTHER NEGATIVE Reference Range: Negative [facility] COPATH CONVERTED DIAGNOSIS COMMENT Slide(s) initially screened by a Nanosystems Engineer at [facility], [address] [place], [place] [id number] Testing for high-risk (HR) type of human papilloma virus (HPV) is performed by the [employer] trae HPV Test. The trae HPV Test is a qualitative polymerase chain reaction that amplifies DNA of HPV16, HPV18 and 12 other high-risk HPV types (31, 33, 35, 39, 45, 51, 52, 56, 58, 59, 66, and 68) associated with cervical cancer and its precursor lesions. A positive result indicates the presence of HPV DNA due to one or more of the 14 genotypes: 16, 18, 31, 33, 35, 39, 45, 51, 52, 56, 58, 59, 66, and 68. Negative results indicate HPV DNA concentrations are undetectable or below the pre-set threshold for detection. False negative results may be associated with unoptimized sampling. A negative HR HPV result does not exclude the possibility of future cytologic HSIL or underlying CIN2-3 or cancer. This test is approved for cervical specimens by the [place] Food and Drug Administration. Results of this test should be interpreted in conjunction with the patient's Pap test results. Please refer to ASCCP current guidelines for the use of HPV DNA testing, result interpretation, and patient management. The performance of this test was verified by the Molecular Diagnostic Laboratory at [facility]. The lab is certified under the Clinical Laboratory Amendments of 1988 (CLIA 88) as qualified to perform high complexity clinical laboratory testing. This specimen has been analyzed by the [employer] Imaging System ([employer] an automated imaging and review system, which assists the laboratory in evaluating cells on ThinPrep Pap tests. Following automated imaging, selected boogie from every slide were reviewed by a party director and/or pathologist. [facility] COPATH CONVERTED FINAL REPORT PDF LINK TO COPY AND PASTE \[id number] [email or web address] [facility] COPATH TPP CERVICAL-Include Genotype 10/10/2021 10/10/2021 5:25 AM EST us Mauro Matta MD LAB CYTOLOGY ORDERABLES Final R esult [facility]Y [address] [place] [address] * (ABNORMAL) Lipid Panel Non-Fasting (11/21/2020 9:00 AM EDT) Cholesterol 223(H) 0 - 199 mg/dL [facility] LAB Comment: . AGE DESIRABLE BORDERLINE HIGH HIGH 0-19 Y 0 - 169 170 - 199 >/= 200 20-24 Y 0 - 189 190 - 224 >/= 225 >24 Y 0 - 199 200 - 239 >/= 240 All ranges are based on fasting samples. Specific therapeutic targets will vary based on patient-specific cardiac risk. . Pediatric guidelines reference:Pediatrics 2011, 128(S5). Adult guidelines reference: NCEP ATPIII Guidelines, PIETER 2001, 258:2486-97 . Venipuncture immediately after or during the administration of Metamizole may lead to falsely low results. Testing should be performed immediately prior to Metamizole dosing. HDL 77.8 mg/dL [facility] Comment: . AGE VERY LOW LOW NORMAL HIGH 0-19 Y < 35 < 40 40-45 ---- 20-24 Y ---- < 40 >45 ---- >24 Y ---- < 40 40-60 >60 . Cholesterol/HDL Ratio 2.9 [facility] Comment: REF VALUES DESIRABLE < 3.4 HIGH RISK > 5.0 Non-HDL Cholesterol 145 mg/dL [facility] Comment: AGE DESIRABLE BORDERLINE HIGH HIGH VERY HIGH 0-19 Y 0 - 119 120 - 144 >/= 145 >/= 160 20-24 Y 0 - 149 150 - 189 >/= 190 ---- >24 Y 30 MG/DL ABOVE LDL CHOLESTEROL GOAL . 11/21/2020 9:00 AM EDT 11/21/2020 2:51 PM EDT us Hakan Mary James [facility] LAB BLOOD ORDERABLES Fi nal Result [facility] from Last 3 Months or Most Recently Relevant to Health Maintenance Insurance MEDICAID MEDICAID Advance Directives For more information, please contact: [phone] (Available ) * Full Code (Latest Code Status on File) Date Activated Date Inactivated Comments 03/04/2024 1:16 AM Question Answer Comments Plan of Care: Code Status Discussion Completed Decision Maker: Patient * Full Code Date Activated Date Inactivated Comments 02/17/2024 11:02 AM 03/04/2024 1:16 AM Question Answer Comments Plan of Care: Code Status Discussion Completed Decision Maker: Patient * Full Code Date Activated Date Inactivated Comments 01/14/2024 5:28 AM 02/17/2024 11:02 AM Question Answer Comments Plan of Care: Code Status Discussion Completed Decision Maker: Patient * Full Code Date Activated Date Inactivated Comments 11/10/2023 7:22 PM 01/14/2024 5:28 AM Question Answer Comments Plan of Care: Code Status Discussion Not Compl eted Decision Maker: Provider Rationale: Patient condition does not warra nt discussion Care Teams Sql Ssrs Ssis Developer Relationship Specialty Start Date End Date Generic Provider, No Assigned [place] [address] PCP - General Inspector [employer] 03/30/24 [place] [address] [place] [address] Consulting Physician Hematology and Oncology 12/12/24 [place] [address] [address] [facility] [place] [address] Consulting Physician Vascular Medicine 01/23/25
--- OUTSIDE RECORDS SUMMARY | 2025-03-29 13:15 | XMS_ITS ---
Author Organization [facility] Address [address] [place] [address] Care Team Providers Care Line Patrolman Name Role Phone Unavailable Primary Care Provider Unavailabl e Case Management Status:Enrolled (Active) Start date:02/21/2025 Enrollment date:02/21/2025 Related social drivers of health:Financial Resource Strain, Stress, Physical Activity, Food Insecurity, Safety and Environment Case Team Name Relationship Phone Tyree Tinsley [facility](Responsible Staff) Continued Care and Services Coordination
[2025-03-29 14:11] LABS: Hematocrit 36.6 % (36.0-48.0); Hemoglobin 12.0 g/dL (12.0-16.0); Immature Granulocytes Abs Auto 0.01 10^3/uL (0.00-0.03); Immature Granulocytes Pct Auto 0.1 % (0.0-0.5); Lymphocytes Absolute Auto 2.1 10^3/uL (1.2-3.8); Mean Corpuscular HGB Conc 32.8 g/dL (29.9-35.2); Mean Corpuscular Hemoglobin 30.2 pg (26.7-34.0); Mean Corpuscular Volume 92.0 fL (81.0-99.0); Platelet Count 193 10^3/uL (150-450); Red Blood Count 3.98 10^6/uL (4.20-5.40); White Blood Count 7.1 10^3/uL (4.0-11.0)
[2025-03-29 14:50] LABS: Alanine Aminotransferase 45 U/L (14-59); Albumin Globulin Ratio 0.6; Albumin Level 3.1 g/dL (3.4-5.0); Alkaline Phosphatase 214 U/L (46-116); Anion Gap 13.9; Aspartate Amino Transferase 142 U/L (15-37); Blood Urea Nitrogen 7.0 mg/dL (7.0-18.0); Calcium 9.0 mg/dL (8.5-10.1); Carbon Dioxide 26.8 mmol/L (21.0-32.0); Chloride 106 mmol/L (98-107); Estimated GFR (African America >60 (>=60 mL/min/1.73m^2); Estimated GFR (Non-African Ame >60 (>=60 mL/min/1.73m^2); Globulin 5.4 g/dL; Glucose 113 mg/dL (74-106); Potassium 3.7 mmol/L (3.5-5.1); Sodium 143 mmol/L (136-145); Total Protein 8.5 g/dL (6.4-8.2)
== END 2025-03-29 13:09 | disposition home or self-care (01) ==
PROVIDERS: Visit Provider Nurse Practitioner Primary Care
DX: F10.20 Alcohol dependence, uncomplicated (principal)
CPT/HCPCS: 36415; 80053; 85025; 86317; 87340; 87389; 87522